=== PATIENT | female | born 1935 | race Caucasian/White ===

== ENCOUNTER 2017-09-29 11:33 | Observation (INO) ==
--- NOTE | 2017-09-29 11:46 | Emergency Department Note ---
Disposition Clinical Impression: Altered awareness, transient, History of CVA (cerebrovascular accident) Disposition: Admitted As Inpatient Condition: Fair Forms: ED Satisfaction Letter General Adult HPI - General Chief complaint: ED Altered Mental Status Stated complaint: AMS Time Seen by Provider: 09/29/17 11:37 Source: family, EMS Limitations: altered mental status Nursing Notes Reviewed: Yes Vital Signs Reviewed: Yes - History of Present Illness HPI Narrative: 82-year-old female who was sitting and eating at approximately 10 AM this morning. was eating with her and reports that she suddenly went unresponsive. She was still sitting up with muscle tone but her eyes closed and she would not answer any questions. She did not choke. She has a history of a stroke approximately 9 months ago. Unclear if it was hemorrhagic or ischemic. Since EMS was called she has improved to the point where she will open her eyes but was still not follow commands or speak. Her baseline is mild confusion due to the prior stroke. Her past medical history includes prior thyroid cancer with thyroidectomy. She also has hypertension. According to her she does not take an aspirin or any blood thinners. She has no cardiac issues that he is aware of. Her is her primary caregiver Pain Scale: 0 Consistency: constant Improves with: nothing Worsens with: nothing Associated symptoms: Reports: denies other symptoms Treatments Prior to Arrival: none - Related Data Home Medications Medication Instructions Recorded Confirmed Aspirin [Lo-Dose Aspirin EC] 81 mg PO DAILY 09/29/17 09/29/17 Ergocalciferol (VITAMIN D2) 50,000 unit PO QWEEK 09/29/17 09/29/17 [Vitamin D2] Levothyroxine [Synthroid] 100 mcg PO DAILY 09/29/17 09/29/17 Losartan Potassium [Cozaar] 50 mg PO DAILY 09/29/17 09/29/17 Allergies Allergy/AdvReac Type Severity Reaction Status Date / Time No Known Allergies Allergy Verified 09/29/17 11:48 Limitations: ROS unobtainable due to patients medical condition Past Medical History - Past Medical History Medical history: Reports: CVA, hypertension, thyroid disease Psychiatric history: Reports: no psych history - Social History Smoking Status: Never smoker Smokeless Tobacco Status: No Alcohol use: Reports: none Drug use: Reports: none Physical Exam - General Limitations: altered mental status General appearance: alert - Head Head exam: atraumatic - Eye Eye exam: Present: normal appearance, PERRL, other (Will not follow commands to test extraocular movements) - ENT ENT exam: normal exam, normal oropharynx - Neck Neck exam: Present: normal inspection - Chest Chest inspection: Present: normal inspection - Respiratory Respiratory exam: Present: normal lung sounds bilaterally. Absent: respiratory distress - Cardiovascular Cardiovascular exam: Present: regular rate, normal rhythm - Abdominal Exam Abdominal exam: Present: soft, Non-Tender - Extremities Exam Extremities exam: Present: normal inspection - Neurological Exam Neurological exam: Present: alert, other (Is unable to answer questions. She does not follow any commands. She is alert but with increased muscular tone. She appears to be catatonic. If you move an arm up in the air she will hold it there until you put it back down.) - Skin Skin exam: Present: warm, dry Course Course Narrative: Stroke alert called. While here in the emergency department her symptoms also completely resolved. The stroke camera was used with [facility]. They did not recommend TPA. They recommended admission for TIA versus other causes. Lab work and EKG are unremarkable. She will be admitted. She is now able to answer questions appropriately but still does speak slowly. Vital Signs Temperature 98.2 F 09/29/17 11:36 Pulse Rate 77 09/29/17 11:36 Respiratory Rate 17 09/29/17 11:36 Blood Pressure 193/93 09/29/17 11:36 O2 Sat by Pulse Oximetry 96 09/29/17 11:36 Temperature 98.2 F 09/29/17 11:36 Pulse Rate 83 09/29/17 12:22 Respiratory Rate 23 09/29/17 12:22 Blood Pressure 183/93 09/29/17 12:22 O2 Sat by Pulse Oximetry 99 09/29/17 12:22 Oxygen Delivery Oxygen Delivery Room Air Medical Decision Making - Medical Records Medical records reviewed: Yes I reviewed the patient's medical records. - Lab Data Lab results reviewed: Yes I reviewed the patient's lab results. Result diagrams: 09/29/17 11:43 09/29/17 11:43 Lab Results 09/29/17 09/29/17 09/29/17 Range/Units 11:43 11:43 11:43 WBC 6.7 (4.3-11.1) K/mcL RBC 3.71 L (3.82-4.97) M/mcL Hgb 11.4 L (11.5-15.4) g/dL Hct 34.5 L (35.3-44.9) % MCV 93.0 (83.0-100.0) fL MCH 30.7 (28.0-33.3) pg MCHC 33.0 (31.6-35.5) g/dL RDW 13.1 (11.5-14.5) % Plt Count 230 (140-400) K/mcL MPV 9.7 (9.4-12.4) fL Immature Gran % 0.3 (0-4) % Seg Neutrophils % 76.2 % Lymphocytes % 16.2 % Monocytes % 6.4 % Eosinophils % 0.3 % Basophils % 0.6 % Neutrophils # 5.1 (1.6-8.9) K/mcL Lymphocytes # 1.1 (0.6-4.6) K/mcL Monocytes # 0.4 (0.0-1.3) K/mcL Eosinophils # 0.0 (0.0-0.6) K/mcL Basophils # 0.0 (0.0-0.2) K/mcL PT 10.8 (9.4-12.1) Seconds INR 1.0 APTT 32.1 (26.0-36.0) Seconds Sodium 139 (136-145) mEq/L Potassium 4.5 (3.5-4.5) mEq/L Chloride 105 (98-109) mEq/L Carbon Dioxide 24 (19-29) mEq/L BUN 26 H (7-20) mg/dL Creatinine 1.33 H (0.57-1.11) mg/dL Est GFR ( Amer) 46 L (> 60) Est GFR (Non-Af Amer) 38 L (> 60) BUN/Creatinine Ratio 20 (6-26) Glucose 106 H (70-99) mg/dL Calculated Osmolality 293 (280-300) Calcium 8.4 L (8.6-10.8) mg/dL Troponin I (0-0.03) ng/mL 09/29/17 Range/Units 11:43 WBC (4.3-11.1) K/mcL RBC (3.82-4.97) M/mcL Hgb (11.5-15.4) g/dL Hct (35.3-44.9) % MCV (83.0-100.0) fL MCH (28.0-33.3) pg MCHC (31.6-35.5) g/dL RDW (11.5-14.5) % Plt Count (140-400) K/mcL MPV (9.4-12.4) fL Immature Gran % (0-4) % Seg Neutrophils % % Lymphocytes % % Monocytes % % Eosinophils % % Basophils % % Neutrophils # (1.6-8.9) K/mcL Lymphocytes # (0.6-4.6) K/mcL Monocytes # (0.0-1.3) K/mcL Eosinophils # (0.0-0.6) K/mcL Basophils # (0.0-0.2) K/mcL PT (9.4-12.1) Seconds INR APTT (26.0-36.0) Seconds Sodium (136-145) mEq/L Potassium (3.5-4.5) mEq/L Chloride (98-109) mEq/L Carbon Dioxide (19-29) mEq/L BUN (7-20) mg/dL Creatinine (0.57-1.11) mg/dL Est GFR ( Amer) (> 60) Est GFR (Non-Af Amer) (> 60) BUN/Creatinine Ratio (6-26) Glucose (70-99) mg/dL Calculated Osmolality (280-300) Calcium (8.6-10.8) mg/dL Troponin I 0.01 (0-0.03) ng/mL - Radiology Data Radiology results reviewed: Yes I reviewed the patient's radiology results. - EKG Data EKG #1 EKG attestation: Yes I reviewed and interpreted this EKG. EKG shows normal: sinus rhythm Rate: normal Rhythm: NSR Superior/QRS: normal When compared to previous EKG there are: no significant changes Interpretation: no acute changes NIH Stroke Scale - Level of Consciousness LOC: Alert - LOC Questions LOC Questions: Answers both correctly - LOC Commands LOC Commands: Performs both correctly - Best Gaze Best Gaze: Normal - Visual Visual: No visual loss - Facial Palsy Facial Palsy: Normal - Motor Arms Motor Arm-Left: No drift for 10 seconds Motor Arm-Right: No drift for 10 seconds - Motor Legs Motor Leg-Left: No drift for 5 seconds Motor Leg-Right: No drift for 5 seconds - Limb Ataxia Limb Ataxia: Normal, No Ataxia - Sensory Sensory: Normal - Best Language Best Language: Mute, no usable speech - Dysarthria Dysarthria: Severe, slurred speech unintelligible or mute - Extinction and Inattention Extinction and Inattention: Normal - NIHSS Total Score NIHSS Total Score: 5 TPA Checklist - Source Information Source: Family - Eligibilty for IV tPA 1. LKW equal to or less than 4.5 hours be before treatment: Yes 2. Clinical diagnosis of ischemic stroke causing deficit: Yes 3. Age 18 years or older: Yes - Contraindications 4. Evidence of intracranial hemorrhage on pretreatment CT: No 5. Presentation suggests subarachnoid hem, even if CT normal: No 6. CT shows multilobar infarction: No 7. Known neoplasm, arteriovenous malformation, or aneurysm: No 8. Significant head trauma (w/ LOC) or CVA in last 3 months: No 9. BP elevated (systolic > 185 or diastolic > 110): Yes 10. Abnormal Blood Glucose (<50 or >400mg/dl): No 11. Active internal bleeding [PM.TPA15]: No 12. Known bleeding risk (including; not limited to 13-15): No 13. Heparin/argatroban/bivalirudin w/in 48hrs & PTT > normal: No 14. Platelet count less than 100,000/MM3: No 15. Current or recent use of anticoagualants (see protocol): No - Warnings/Precautions Considerations 18. : No 19. Current/recent use Effient (7 days) or Brilinta (5 days): No 20. Arterial puncture at non compressible site or LP >7days: No 21. Major surgery or serious trauma in last 14 days: No 22. GI or urinary tract hemorrhage in last 21 days: No 23. MN involving left anterior myocardium in last 3 months: No 24. Suspected or known infective endocarditis/pericarditis: No - LKW: 3-4.5 hrs Add. Warnings/Precautions 21. oral anticoag other than warfarin regardles of last dose: No Patient/family understanding: The patient/family members have been counseled and understood the risk, benefit , and alternatives of treatment.
[2017-09-29 11:54] LABS: Basophils % 0.6 %; Eosinophils % 0.3 %; Hematocrit 34.5 % (35.3-44.9); Hemoglobin 11.4 g/dL (11.5-15.4); Immature Granulocytes % 0.3 % (0-4); Lymphocytes # 1.1 K/mcL (0.6-4.6); Lymphocytes % 16.2 %; Mean Corpuscular Hemoglobin 30.7 pg (28.0-33.3); Mean Platelet Volume 9.7 fL (9.4-12.4); Monocytes # 0.4 K/mcL (0.0-1.3); Monocytes % 6.4 %; Neutrophils # 5.1 K/mcL (1.6-8.9); Platelet Count 230 K/mcL (140-400); Red Blood Count 3.71 M/mcL (3.82-4.97); Red Cell Distribution Width 13.1 % (11.5-14.5); Segmented Neutrophils % 76.2 %
--- NOTE | 2017-09-29 11:56 | Emergency Department Note ---
START Narrative - START START: I examined this patient and my medical decision-making was reviewed with the emergency medicine resident. I agree with the documented findings, disposition and treatment plan as described except to the extent set forth below. Patient seen with emergency medicine resident Dr. Carlos Salguero, Please see a copy of his note for details of the H&P, ED evaluation, management and disposition. I have independently evaluated the patient and confirmed appropriate portions of the history and physical exam. Briefly: A 2-year-old female history of stroke 6-8 months ago by EMS for acute CVA. Patient arrives catatonic, NIH about 7 patient stroke alert was called stroke robot is in room stroke alert in process. Provided 35 minutes critical care services to this patient disposition pending
[2017-09-29 12:00] LABS: Prothrombin Time 10.8 Seconds (9.4-12.1)
[2017-09-29 12:02] LABS: Activated Partial Thrombo Time 32.1 Seconds (26.0-36.0)
[2017-09-29 12:07] LABS: Calcium 8.4 mg/dL (8.6-10.8); Potassium 4.5 mEq/L (3.5-4.5)
[2017-09-29] MEDS ORDERED: Naloxone 0.4 MG/ML INJ IVP PRN (14:30)
--- NOTE | 2017-09-29 14:43 | Internal Med History&Physical ---
Date of Encounter: 09/29/17 Time of Encounter: 14:39 Assessment and Plan (1) TIA (transient ischemic attack) Current visit: Yes Status: Suspected Transient alterations in mental status and this morning. The differential includes TIA, SEIZURE AND HTN ENCEPHALOPATHY. Patient is now back to baseline with no focal neuro deficits noted. History of CVA approximately 9 months ago. Not taking any blood thinners, 81 mg aspirin daily for antiplatelet therapy. Was initially found with hypertensive urgency on arrival to the ED. Consult neurology- Spoke with Dr. Grigsby who has agreed to see the patient EEG to rule out seizure- implement seizure precautions. Stroke workup will include MRI head and brain with contrast, MRA head and neck without contrast PT/OT consult Continuous telemetry, neuro checks per protocol, NIHSS per protocol Qualifiers: Transient cerebral ischemia type: unspecified Qualified Code(s): G45.9 - Transient cerebral ischemic attack, unspecified (2) Seizure Current visit: Yes Status: Acute Patient rapidly improved no focal neuro deficits. Current presentation appears likely had a seizure. However cannot fully rule out TIA or hypertensive encephalopathy. See plan above (3) Altered awareness, transient Current visit: Yes Status: Acute Condition improving. See plan above (4) HTN (hypertension) Current visit: Yes Status: Acute Hypertensive urgency upon arrival systolic blood pressures in the 190s. 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 Reports having thyroid cancer at 23 years of age, follows as an outpatient with her primary care provider in [facility]. Continue Synthroid home dose starting tomorrow Qualifiers: Hypothyroidism type: acquired Qualified Code(s): E03.9 - Hypothyroidism, unspecified (6) DVT prophylaxis Current visit: Yes Status: Acute Heparin 5000 units subcutaneous every 12 hours Internal Medicine - H&P: HPI Chief complaint: TIA versus seizure Admitted From: Home Plans for Post Hospital Care: Home History of present illness: Ms. Arrieta is a 82 year old female with a PMH of CVA 9 months ago with some baseline confusion since treatment, HTN, and hypothyroidism secondary to thyroid cancer. Patient arrives to [facility] with due to acute mental status change. Time of this examination the patient was alert and oriented 3 and able to participate in the examination, however, is still having some difficulty remembering some of the events this morning. She reports that she was eating breakfast this morning and all of a sudden she feels like she passed out. Her reports that her eyes were open and she became unresponsive. She was unable to verbally communicate or follow any commands so he called EMS. The time she arrived to the emergency department symptoms are slowly resolving. I will see stroke center was consulted and recommended admitting for TIA versus seizures. Troponin negative CT of head negative EKG normal sinus rhythm. Patient denies any vision changes, headaches, slurred speech, facial droop, numbness or tingling. However, her admits that she fell yesterday and but not hit her head and that she has been having an increased shuffling gait over the last few days. Past Med Surg Social Fam HX - Past Medical History Medical history: CVA, hypertension, thyroid disease Psychiatric history: no psych history - Social History Smoking Status: Never smoker Smokeless Tobacco Status: No Alcohol use: none Drug use: none - Family History Mother Race: - Additional Family History Additional family history: Noncontributory Internal Medicine - H&P: Meds Aspirin [Lo-Dose Aspirin EC] 81 mg PO DAILY 09/29/17 [History] Ergocalciferol (VITAMIN D2) [Vitamin D2] 50,000 unit PO QWEEK 09/29/17 [History] Levothyroxine [Synthroid] 100 mcg PO DAILY 09/29/17 [History] Losartan Potassium [Cozaar] 50 mg PO DAILY 09/29/17 [History] 3 Allergy/AdvReac Type Severity Reaction Status Date / Time No Known Allergies Allergy Verified 09/29/17 11:48 All Systems PM: A 10-system review of systems was performed and is negative for pertinent findings except as documented above in the HPI. - Constitutional Constitutional: as per HPI, falls, no chills, no fatigue, no fever(s), no lethargy, no night sweats - EENT Eyes: no blurry vision, no change in vision, no discharge, no loss of peripheral vision, no loss of vision, no pain, no photophobia, no spots in vision, no tunnel vision Ears: no ear discharge, no ear pain, no tinnitus Nose, mouth and throat: no dysphagia, no nasal discharge, no neck pain, no sore throat - Cardiovascular Cardiovascular ROS IM: no chest pain, no diaphoresis, no dyspnea, no lightheadedness, no palpitations, no syncope - Respiratory Respiratory: no cough, no dyspnea, no wheezing, no excessive phlegm production - Gastrointestinal Gastrointestinal: no abdominal pain, no diarrhea, no hematemesis, no hematochezia, no melena, no nausea, no vomiting - Genitourinary Genitourinary: no change in urinary stream, no dysuria, no flank pain, no hematuria - Musculoskeletal Musculoskeletal ROS IM: no numbness, no tingling - Integumentary Integumentary IM: no rash, no unusual bruising - Neurological Neurological ROS: as per HPI, abnormal gait, no abnormal movements, no abnormal speech, no confusion, no convulsions, no disequilibrium, no dizziness, no focal weakness, no frequent falls, no headache(s), no lack of coordination, no loss of vision, no numbness, no tingling, no tremor(s) - Psychiatric Psychiatric: difficulty concentrating, no behavioral changes, no confusion - Hematologic/Lymphatic Hematologic/Lymphatic: no easy bruising - Constitutional Vitals: Temp Pulse Resp BP Pulse Ox 98.2 F 73 18 167/76 98 09/29/17 11:36 09/29/17 14:05 09/29/17 14:05 09/29/17 14:05 09/29/17 13:05 General appearance: Present: cooperative, A&O X 3, pleasant - Head Head exam: Present: atraumatic, normocephalic - Eye Eye exam: Present: EOMI, PERRL, conjuntiva pink, sclera anicteric Pupils: Present: PERRL - Neck Neck exam general surgery: Present: full ROM, supple, trachea midline. Absent: tenderness - Respiratory Respiratory exam: Present: CTAB. Absent: accessory muscle use, rales, rhonchi, wheezes - Cardiovascular Cardiovascular exam: Present: RRR, +S1, +S2. Absent: diastolic murmur, gallop, rubs, systolic murmur - GI/Abdominal GI/Abdominal exam: Present: normal bowel sounds, soft, no peritoneal signs. Absent: distended, tenderness - Extremities Exam Extremities exam: Present: warm, radial pulses palpable and symmetrical. Absent : calf tenderness, cyanotic, pedal edema - Neurological Exam Neurological exam: Present: alert, CN II-XII intact, oriented X3, no focal deficits, strengths equal and symetr throughout. Absent: pronater drift, facial droop, speech deficit - Expanded Neurological Exam Neurological exam expanded: Present: protecting the airway, tremor (Chronic right upper extremity). Absent: expressive aphasia, receptive aphasia Patient oriented to: Present: person, place (With cues), time Speech: Present: fluid speech Cranial Nerves: EOM's intact PM: Normal, gag reflex PM: Normal, nystagmus PM: Normal, tongue deviation PM: Normal Cerebellar function: finger to nose: Abnormal Left (Right normal), heel to cook : Abnormal Left (Right normal), Romberg: Normal Upper motor neuron: Babinski sign: Normal, Manuel neglect: Normal, pronator drift : Normal, sensory extinction: Normal Neuro motor strength exam: LUE: 4, RUE: 4, LLE: 4, RLE: 4 Coma Scale Eye Opening: Spontaneous Coma Scale Motor Response: Obeys Commands Coma Scale Verbal Response: Oriented (With intermittent confusion; this is patient's baseline) Coma Scale Total: 15 - Psychiatric Psychiatric exam: Present: normal affect, normal mood. Absent: homicidal ideation, suicidal ideation - Skin Skin exam: Present: dry, intact Internal Med - H&P Results - Labs CBC & Chem 7: 09/29/17 11:43 09/29/17 11:43 - Diagnostic Studies CT scan - head Status: image reviewed by me Additional comments: No hemorrhage, mass effect or midline shift or ischemia identified
--- NOTE | 2017-09-29 14:56 | Event Note ---
Date of Encounter: 09/29/17 Time of Encounter: 14:56 Patient and examined with nurse practitioner. Seizure versus TIA. Will do stroke workup, EEG. Check MRI, MRA of the head and neck. Neurology consultation
[2017-09-29] MEDS: Aspirin Enteric Coated 81 MG Tablet PO SCH (16:36)
[2017-09-29] MEDS: *HR* Heparin 5,000 UNIT/ML VIAL SQ SCH (20:34)
[2017-09-30 04:00] LABS: Basophils % 0.4 %; Eosinophils % 0.4 %; Hematocrit 34.2 % (35.3-44.9); Hemoglobin 11.3 g/dL (11.5-15.4); Immature Granulocytes % 0.3 % (0-4); Lymphocytes # 1.6 K/mcL (0.6-4.6); Lymphocytes % 22.2 %; Mean Corpuscular Hemoglobin 30.6 pg (28.0-33.3); Mean Corpuscular Volume 92.7 fL (83.0-100.0); Mean Platelet Volume 9.9 fL (9.4-12.4); Monocytes # 0.5 K/mcL (0.0-1.3); Monocytes % 6.9 %; Neutrophils # 4.9 K/mcL (1.6-8.9); Platelet Count 222 K/mcL (140-400); Red Blood Count 3.69 M/mcL (3.82-4.97); Red Cell Distribution Width 13.3 % (11.5-14.5); Segmented Neutrophils % 69.8 %
[2017-09-30 04:18] LABS: Albumin 3.4 g/dL (3.5-5.0); Albumin/Globulin Ratio 1.1 (1.1-2.2); Bilirubin,Total 0.7 mg/dL (0.2-1.2); Calcium 7.9 mg/dL (8.6-10.8); Chol/HDL Ratio 2.8 (0-4.9); Globulin 3.2 g/dL (2.4-3.5); Potassium 3.6 mEq/L (3.5-4.5); Total Protein 6.6 g/dL (6.0-8.3)
[2017-09-30] MEDS: *HR* Heparin 5,000 UNIT/ML VIAL SQ SCH ×3 (05:07→20:56)
[2017-09-30] MEDS: Aspirin Enteric Coated 81 MG Tablet PO SCH (08:57)
--- NOTE | 2017-09-30 08:58 | Internal Med Progress Note ---
Date of Encounter: 09/30/17 Time of Encounter: 08:55 - Assessment and plan (1) History of CVA (cerebrovascular accident) Current Visit: Yes Status: Acute Assessment and plan: Eve Arrieta is an 82 -year-old female with past medical history dementia, CVA, hypothyroidism, and hypertension who presented to [facility] on 09/29/2017 after an unresponsive episode at home. She was placed in observation status for further workup and treatment 1. Transient alteration in mentation: presented with an unresponsive episode day of admission. Etiology unknown at this time. Differentials include TIA, seizure, seizure or worsening dementia. Head CT with evidence of known infarct, Brain MRI/A without acute infarct or large vessel occlusion or aneurysm. Mentation improved but not back to baseline per family. EEG, UA, TSH pending. Neurology consulted. 2. Hx CVA: in 2015 with no residual deficits. Imaging as noted above. Cont ASA, statin. 3. Hypertensive Urgency: With SBP 80s and 190s on arrival. reports BP fluctuation at home. P improved, continue home BP medication. Monitor BP and titrate PRN 4. CARLEY: Cr 1.3 on arrival. Baseline appears normal. Normalized without intervention. Intimately monitor renal function 5. Hypothyroidism: with hx thyroidectomy. Cont home levothyroxine. TSH pending 6. Dementia: per hx. alert to self only on exam which is worse than baseline per her and daughter. Workup as noted above. Supportive care. 7. DVT prophylaxis: heparin (2) Hypertensive urgency Current Visit: Yes Status: Acute (3) CARLEY (acute kidney injury) Current Visit: Yes Status: Acute (4) Hypothyroidism Current Visit: Yes Status: Acute Qualifiers: Hypothyroidism type: acquired Qualified Code(s): E03.9 - Hypothyroidism, unspecified (5) Dementia Current Visit: Yes Status: Acute Qualifiers: Dementia type: vascular dementia Dementia behavioral disturbance: without behavioral disturbance Qualified Code(s): F01.50 - Vascular dementia without behavioral disturbance - Subjective Interval history: Seen and examined at bedside, patient is new to me. Information obtained from chart review and and daughter at bedside as patient is confused and unable to provide details. reports patient was sitting up at breakfast yesterday morning appeared to be an usual state of health when all of a sudden she became stiff and unresponsive. said it appears that she was . Episode lasted a few minutes. And the patient started to come around again. No previous similar incidents. and daughter both state the patient is more confused than what she normally is. Patient is alert to self only. - Constitutional Vitals: Temp Pulse Resp BP Pulse Ox 98.7 F 72 16 149/75 96 09/30/17 06:53 09/30/17 06:53 09/30/17 06:53 09/30/17 06:53 09/30/17 06:53 General appearance: Present: cooperative, A&O X 1, pleasant, no acute distress - Head Head exam: Present: atraumatic, normocephalic - Eye Eye exam: Present: PERRL, conjuntiva pink, sclera anicteric Pupils: Present: PERRL - Neck Neck exam general surgery: Present: supple, trachea midline. Absent: lymphadenopathy - Respiratory Respiratory exam: Present: CTAB. Absent: accessory muscle use, rales, rhonchi, wheezes - Cardiovascular Cardiovascular exam: Present: RRR, +S1, +S2. Absent: diastolic murmur, gallop, rubs, systolic murmur - GI/Abdominal GI/Abdominal exam: Present: normal bowel sounds, soft, no peritoneal signs. Absent: distended, tenderness - Extremities Exam Extremities exam: Present: warm, radial pulses palpable and symmetrical. Absent : calf tenderness, cyanotic, pedal edema - Neurological Exam Neurological exam: Present: alert, altered, CN II-XII intact, no focal deficits. Absent: pronater drift, facial droop, speech deficit Additional comments: Alert and oriented to self only. - Skin Skin exam: Present: dry, intact Internal Medicine: Result - Labs CBC & Chem 7: 09/30/17 03:16 09/30/17 03:16 Labs: Short CBC 09/30/17 Range/Units 03:16 WBC 7.1 (4.3-11.1) K/mcL Hgb 11.3 L (11.5-15.4) g/dL Hct 34.2 L (35.3-44.9) % Plt Count 222 (140-400) K/mcL Neutrophils # 4.9 (1.6-8.9) K/mcL BMP 09/30/17 03:16 Sodium 140 Potassium 3.6 Chloride 104 Carbon Dioxide 24 BUN 23 H Creatinine 1.08 Glucose 77 Calcium 7.9 L Cardiac Enzymes 09/29/17 Range/Units 18:06 Troponin I 0.00 (0-0.03) ng/mL Liver Function 09/30/17 Range/Units 03:16 Total Bilirubin 0.7 (0.2-1.2) mg/dL AST 20 (5-34) Units/L ALT 12 (0-55) Units/L Alkaline Phosphatase 50 (38-126) Units/L Albumin 3.4 L (3.5-5.0) g/dL - ABG Interpretation ABG results: PT/INR, D-dimer PT 10.8 Seconds (9.4-12.1) 09/29/17 11:43 - Impressions Impressions Brain MRI 09/29/17 14:35 IMPRESSION: Moderate chronic small vessel ischemic disease within the periventricular white matter with associated cerebral atrophy. Chronic ischemic changes within the thalami. No evidence of acute ischemia. D/ / 09/29/2017 19:54:56 Eleazar Covington MD / alexis Interpreting Provider: Eleazar Covington MD Head MRA 09/29/17 14:35 IMPRESSION: No evidence of large vessel occlusion or aneurysm. 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 D/ / 09/29/2017 19:56:21 Eleazar Covington MD / rich Interpreting Provider: Eleazar Covington MD Neck MRA 09/29/17 14:35 IMPRESSION: Unremarkable exam D/ / Eleazar Covington MD / Eleazar Covington MD Interpreting Provider: Eleazar Covington MD Consult Discharge Plan - Plan Referrals: Adarsh Dior MD [Primary Care Provider] -
[2017-09-30 10:10] LABS: Thyroid Stimulating Hormone 2.412 mcIU/mL (0.350-4.840)
--- NOTE | 2017-09-30 10:39 | Neurology - Consult Note ---
Date of Encounter: 09/30/17 Time of Encounter: 08:15 Assessment and Plan (1) Altered awareness, transient Current Visit: Yes Status: Acute pt Noted to have this episode of these attention and unresponsiveness that has seemed to resolve spontaneously. No evidence of any acute stroke on exam at the same time it less likely was a TIA especially when it is involved consciousness without any other focal motor signs she already had MRI of the brain that was reported as negative for any acute infarct. MRA of the neck was also negative for any critical stenosis in anterior and posterior circulation. Other possibility that it could be nonconvulsive seizure for that he could do an EEG but at this time I would not recommend starting her on any antiepileptic medication. Should check for any underlying infectious or metabolic abnormality that may have been contributing to this patient's symptoms on the other hand may benefit from acute rehabilitation for generalized weakness and deconditioning (2) History of CVA (cerebrovascular accident) Current Visit: Yes Status: Acute History of stroke without any focal motor deficit on exam neither any abnormality on her new MRI to be suggestive of stroke. Continue on intact platelet agent along with the statin (3) Memory loss or impairment Current Visit: Yes Status: Acute History of Present Illness HPI: Ms. Arrieta is a 82 year old female with PMH of CVA, 9 months ago with some baseline confusion and no significant residual weakness, also has HTN, and hypothyroidism secondary to thyroid cancer. admitted with mental status change. according to who provided most of the history that that she was eating breakfast this morning and all of a sudden she feels like she passed out. Her reports that her eyes were open and she became unresponsive. She was unable to verbally communicate or follow any commands so he called EMS by the time she arrived to the emergency department she started waking up and start answering questions, [facility] tele stroke services were called in suggest work up for TIA versus seizures. CT of head negative, EKG normal sinus rhythm. Patient denies any vision changes, headaches, slurred speech, facial droop, numbness or tingling. per she is having an increased shuffling gait over the last few days. Past Med Surg Social Fam HX - Past Medical History Medical history: CVA, hypertension, thyroid disease Psychiatric history: no psych history - Past Surgical History Surgical History: thyroidectomy - Social History Smoking Status: Never smoker Smokeless Tobacco Status: No Alcohol use: none Drug use: none - Family History Mother Race: Medications and Allergies Aspirin [Lo-Dose Aspirin EC] 81 mg PO DAILY 09/29/17 [History] Ergocalciferol (VITAMIN D2) [Vitamin D2] 50,000 unit PO QWEEK 09/29/17 [History] Levothyroxine [Synthroid] 100 mcg PO DAILY 09/29/17 [History] Losartan Potassium [Cozaar] 50 mg PO DAILY 09/29/17 [History] 3 Allergy/AdvReac Type Severity Reaction Status Date / Time No Known Allergies Allergy Verified 09/29/17 11:48 All Systems: A 10-system review of systems was performed and is negative for pertinent findings except as documented above in the HPI. Physical Examination - Vital Signs Vital Signs: Initial Vital Signs Temp Pulse Resp BP Pulse Ox 98.2 F 77 17 193/93 96 09/29/17 11:36 09/29/17 11:36 09/29/17 11:36 09/29/17 11:36 09/29/17 11:36 - Constitutional General appearance: comfortable - Neurologic Sensorimotor examination: intact Detailed motor examination: grossly full strength in all extremities Detailed sensory examination: intact Reflexes: Biceps: 1+, Triceps: 1+, Brachioradialis: 1+, Patella: 1+, Achilles: 1 + Mental Status Examination: awake, alert, oriented to person, follows simple commands, localizes noxious stimulation Cranial nerve examination: PERRL, EOMI, visual montgomery intact, sensory to face intact, no facial asymmetry is present, no dysarthria Cerebellar examination: no dysmetria Results - Laboratory Findings CBC and BMP: 09/30/17 03:16 09/30/17 03:16 Abnormal lab findings: Abnormal lab results RBC 3.69 M/mcL (3.82-4.97) L 09/30/17 03:16 Hgb 11.3 g/dL (11.5-15.4) L 09/30/17 03:16 Hct 34.2 % (35.3-44.9) L 09/30/17 03:16 BUN 23 mg/dL (7-20) H 09/30/17 03:16 Est GFR ( Amer) 59 (> 60) L 09/30/17 03:16 Est GFR (Non-Af Amer) 49 (> 60) L 09/30/17 03:16 Calcium 7.9 mg/dL (8.6-10.8) L 09/30/17 03:16 Albumin 3.4 g/dL (3.5-5.0) L 09/30/17 03:16 Cholesterol 243 mg/dL (< 200) H 09/30/17 03:16 LDL Cholesterol, Calc 142 mg/dL (0-99) H 09/30/17 03:16 HDL Cholesterol 87 mg/dL (40-59) H 09/30/17 03:16 Consult Discharge Plan - Plan Referrals: Adarsh Dior MD [Primary Care Provider] -
[2017-09-30 14:39] LABS: Bilirubin,Urine Small (Negative); Blood,Urine Negative (Negative); Clarity,Urine Cloudy (Clear); Color,Urine Yellow (Yellow); Glucose,Urine (UA) Normal (Normal); Ketones,Urine 15 mg/dL (Negative); Leukocyte Esterase,Urine Large (Negative); Nitrite,Urine Negative (Negative); Protein,Urine 30 mg/dL (Neg-Trace); Urobilinogen,Urine Normal (Normal)
[2017-09-30 14:42] LABS: Squamous Epithelial Cell,Urine Few per lpf (None-Few); WBC,Urine TNTC per hpf (0-3)
--- NOTE | 2017-09-30 14:53 | EEG/EMG/Oth Biometrics Report ---
EEG Procedure Report Date of procedure: 09/30/17 EEG Procedure: Routine EEG Procedure Note: This is a report of a 21 channel bipolar and referential montage EEG. The posterior dominant rhythm of 6-7 Hz moderate to low voltage theta frequencies identified symmetrically and the posterior head regions. This rhythm is not reactive to eye opening. Hyperventilation is not performed in the recording. There is no sleep architecture identified during the study. Photic stimulation is performed and does not produce a driving response. The EKG rhythm strip reveals normal sinus rhythm at 72. Impressions: This EEG recording is abnormal and is consistent with a mild to moderately generalized encephalopathy. There is no evidence of epileptiform activity identified during the study. Comment: This EEG recording does not rule out the possibility of seizure or epilepsy. If the clinical suspicion for seizure activity is high, serial EEGs or perhaps a prolonged recording may increase the yield. Please correlate clinically.
[2017-09-30 14:56] LABS: Bacteria,Urine Few per hpf (None-Few); RBC,Urine 0-3 per hpf (0-3)
[2017-09-30 14:57] LABS: Hyaline Casts,Urine Few per lpf (None-Few)
[2017-09-30 16:14] LABS: Folate 10.9 ng/mL (7.0-31.4)
[2017-10-01 02:52] LABS: Hematocrit 31.6 % (35.3-44.9); Hemoglobin 10.5 g/dL (11.5-15.4); Mean Corpuscular HGB Conc 33.2 g/dL (31.6-35.5); Mean Corpuscular Hemoglobin 30.7 pg (28.0-33.3); Mean Corpuscular Volume 92.4 fL (83.0-100.0); Mean Platelet Volume 9.9 fL (9.4-12.4); Platelet Count 219 K/mcL (140-400); Red Blood Count 3.42 M/mcL (3.82-4.97); Red Cell Distribution Width 13.2 % (11.5-14.5)
[2017-10-01 03:13] LABS: Calcium 7.9 mg/dL (8.6-10.8); Potassium 3.4 mEq/L (3.5-4.5)
[2017-10-01] MEDS: *HR* Heparin 5,000 UNIT/ML VIAL SQ SCH (05:31)
--- NOTE | 2017-10-01 08:22 | Discharge Summary ---
Date of Encounter: 10/01/17 Time of Encounter: 08:17 - Discharge Diagnosis (1) History of CVA (cerebrovascular accident) Priority: Primary Status: Acute Comments: vEe Arrieta is an 82 -year-old female with past medical history dementia, CVA, hypothyroidism, and hypertension who presented to [facility] on 09/29/2017 after an unresponsive episode at home. She was placed in observation status for further workup and treatment 1. Transient alteration in mentation: presented with an unresponsive episode day of admission. Head CT with evidence of known lacunar infarct. Brain MRI/A negative for acute infarct, large vessel occlusion or aneurysm. EEG with generalized encephalopathy, no epileptiform activity. Evaluated by Neurology who did not suspect TIA as episode involved consciousness without focal motor signs. Possibly secondary to known dementia or UTI. Mentation improved back to baseline per family. 2. Hx CVA: in 2015 with no residual deficits. Imaging as noted above. Cont ASA, statin. 3. Hypertensive Urgency: With SBP in 180s-190s on arrival. Received IV hydralazine in ED. BP remained variable but overall improved. Cont home BP medication. monitors BP on daily basis. Advised to continue to monitor BP and recommend follow-up with PCP within 3-5 days. 4. CARLEY: Cr 1.3 on arrival. Baseline appears normal. Normalized without intervention. Recommend repeat CMP with PCP. 5. Hypothyroidism: hx thyroidectomy. Cont home levothyroxine. TSH 2.4 6. Dementia: per hx. Mentation improved back to baseline. 7. UTI: UA indicative of UTI. Received 1 dose IV Rocephin. ATB changed to Macrobid at discharge. Follow sensitivity and change ATB if needed. (2) Hypertensive urgency Priority: Primary Status: Acute (3) CARLEY (acute kidney injury) Priority: Primary Status: Acute (4) Hypothyroidism Priority: Primary Status: Acute Qualifiers: Hypothyroidism type: acquired Qualified Code(s): E03.9 - Hypothyroidism, unspecified (5) Dementia Priority: Primary Status: Acute Qualifiers: Dementia type: vascular dementia Dementia behavioral disturbance: without behavioral disturbance Qualified Code(s): F01.50 - Vascular dementia without behavioral disturbance - Discharge Medications Prescriptions: Nitrofurantoin Monohyd/M-Cryst [Macrobid 100 mg Capsule] 100 mg PO BID #14 capsule Home Medications: Aspirin [Lo-Dose Aspirin EC] 81 mg PO DAILY 09/29/17 [History] Ergocalciferol (VITAMIN D2) [Vitamin D2] 50,000 unit PO QWEEK 09/29/17 [History] Levothyroxine [Synthroid] 100 mcg PO DAILY 09/29/17 [History] Losartan Potassium [Cozaar] 50 mg PO DAILY 09/29/17 [History] Nitrofurantoin Monohyd/M-Cryst [Macrobid 100 mg Capsule] 100 mg PO BID #14 capsule 10/01/17 [Rx] Allergies/Adverse Reactions: 3 Allergy/AdvReac Type Severity Reaction Status Date / Time No Known Allergies Allergy Verified 09/29/17 11:48 Procedures/tests Complete & Pending: Procedures Performed prior 72 hours Category Date Time Status MR angio head wo con [MR] Routine MRI 09/29/17 14:35 Completed MR angio neck wo con [MR] Routine MRI 09/29/17 14:35 Completed MR head/brain wo con [MR] Routine MRI 09/29/17 14:35 Completed ECG 12 lead ECG [ECG] Routine Y 09/29/17 11:37 Completed Date of admission: 09/29/17 13:22 Primary care physician: Adarsh Dior MD Consults: 09/29/17 14:34 Consult to Occupational Therapy [CONS] Routine Comment: Evaluate, develop and implement POC Reason for Consult: TIA VS seizure; h/o recent CVA Consult to Physical Therapy [CONS] Routine Comment: Evaluate, develop and implement POC Reason for Consult: TIA VS seizure; h/o recent CVA 09/29/17 14:35 Consult to Neurology [CONS] Routine Consulting Provider: Neurology [facility] Reason for Consult: RECENT H/O CVA, TIA VS SEIZURE THIS ADMISSION Time Notified: 14:38 Call Completed: Yes 09/29/17 16:41 Consult to Interpret Exam [CONS] Routine Consulting Provider: Kosta Grigsby I Consult to Interpret Exam: Interpret EEG 09/30/17 07:55 Consult to Government Services Professional [CONS] Routine Reason for SW Consult: information for POA Discharging clinician: Hermila Valentine Anticipated date of discharge: 10/01/17 - Patient Status Disposition: Home Health Service Condition: Good Functional capacity at discharge: uses cane/walker Overall status at discharge: patient is back to baseline - Discharge Instructions Instructions: Urinary Tract Infection in Women (GEN), Transient Ischemic Attack (DC), Hypertension (DC) Follow Up With: Adarsh Dior MD [Primary Care Provider] - Additional Instructions: Follow Up Appointment Please call your primary care physician within 24 hours over the next business day to schedule follow-up appointment - Diet and Activity Activity: ambulate only with your walker Diet: advance to your usual diet Interval History: Seen and examined at bedside, patient is pleasantly confused, unable to obtain ROS or subjective information. Mentation improved and back to baseline per her Hospital course: Ms. Arrieta is a 82 year old female - Time Spent with Patient Total time spent providing and/or coordinating discharge services: - Constitutional Vitals: Temp Pulse Resp BP Pulse Ox 98.1 F 69 17 133/72 96 10/01/17 03:54 10/01/17 03:54 10/01/17 03:54 10/01/17 03:54 10/01/17 03:54 General appearance: Present: cooperative, A&O X 1, pleasant, no acute distress - Head Head exam: Present: atraumatic, normocephalic - Eye Eye exam: Present: PERRL, conjuntiva pink, sclera anicteric Pupils: Present: PERRL - Neck Neck exam general surgery: Present: supple, trachea midline. Absent: lymphadenopathy - Respiratory Respiratory exam: Present: CTAB. Absent: accessory muscle use, rales, rhonchi, wheezes - Cardiovascular Cardiovascular exam: Present: RRR, +S1, +S2. Absent: diastolic murmur, gallop, rubs, systolic murmur - GI/Abdominal GI/Abdominal exam: Present: normal bowel sounds, soft, no peritoneal signs. Absent: distended, tenderness - Extremities Exam Extremities exam: Present: warm, radial pulses palpable and symmetrical. Absent : calf tenderness, cyanotic, pedal edema - Neurological Exam Neurological exam: Present: alert, altered, CN II-XII intact, no focal deficits. Absent: pronater drift, facial droop, speech deficit Additional comments: Alert to self only - Skin Skin exam: Present: dry, intact
[2017-10-01] MEDS ORDERED: cefTRIAXone 1,000 MG in Water for inj. (sterile) 10 ML IVP SCH (09:00)
[2017-10-01] MEDS: Aspirin Enteric Coated 81 MG Tablet PO SCH (09:28)
--- NOTE | 2017-10-01 11:00 | Electrocardiograph Report ---
[place] [id number] Test Date: 2017-09-29 Pat Name: Eve Arrieta Department: 103 Room: 3B11 Gender: F Manager Industrial: LEE ANN : 1935 Requested By: Hermila Valentine Order Number: [id number] Reading MD: Sarahi Galan Measurements Intervals Burt Rate: 71 P: 9 MA: 151 QRS: -4 QRSD: 86 T: 54 QT: 400 QTc: 422 Interpretive Statements SINUS RHYTHM WITH OCCASIONAL SUPRAVENTRICULAR PREMATURE COMPLEXES Electronically Signed On 10-01-2017 10:58:31 EDT by Sarahi Galan
[2017-10-01 11:28] VITALS: BP 134/78
--- NOTE | 2017-10-01 12:18 | Physician Discharge Referral ---
Home Health/Hosp Referral Info Transfer to: Home Health Attending Provider: Hermila Valentine CNP Provider in Charge Post Discharge: PCP - Diagnosis (1) History of CVA (cerebrovascular accident) Status: Acute (2) Hypertensive urgency Status: Acute (3) CARLEY (acute kidney injury) Status: Acute (4) Hypothyroidism Status: Acute (5) Dementia Status: Acute - Respiratory Orders None Smoking Cessation: Smoking cessation has been advised. For more information, call the [place] Tobacco Quit Line at 8-828-DHQI-NOW. - Diet/Nutrition Diet/Nutrition Orders: Regular - Activity Activity Orders: Walker - Services Needed Following services are medically necessary services: Nursing, Home Health Aide, Physical Therapy, Occupational Therapy - Transfer Medications Prescriptions: Nitrofurantoin Monohyd/M-Cryst [Macrobid 100 mg Capsule] 100 mg PO BID #14 capsule Home Medications: Aspirin [Lo-Dose Aspirin EC] 81 mg PO DAILY 09/29/17 [History] Ergocalciferol (VITAMIN D2) [Vitamin D2] 50,000 unit PO QWEEK 09/29/17 [History] Levothyroxine [Synthroid] 100 mcg PO DAILY 09/29/17 [History] Losartan Potassium [Cozaar] 50 mg PO DAILY 09/29/17 [History] Nitrofurantoin Monohyd/M-Cryst [Macrobid 100 mg Capsule] 100 mg PO BID #14 capsule 10/01/17 [Rx] Allergies/Adverse Reactions: 3 Allergy/AdvReac Type Severity Reaction Status Date / Time No Known Allergies Allergy Verified 09/29/17 11:48 Certification: Further, I certify that my clinical findings support that this patient is homebound (i.e. absences from home require considerable and taxing effort and are for medical reasons or jain services or infrequently or short duration when for other reasons) because: Homebound Reason: Leaving home requires considerable and taxing effort due to condition Attestation: My signature below is to certify that this patient is under my care and that I, or nurse practitioner, or a physician's metal moulder's assistant working with me, has a face-to -face encounter with this patient.
== END 2017-10-01 13:59 | disposition home health service (06) ==
LOC: EMEROO 11:33 → 3BNU 11:33
PROVIDERS: ADMIT Hospitalist; ATTEND Registered Nurse

== ENCOUNTER 2017-12-11 19:36 | Inpatient (IN) ==
--- NOTE | 2017-12-11 20:01 | Emergency Department Note ---
START Narrative - START START: I examined this patient and my medical decision-making was reviewed with the Resident Physician. I agree with the documented findings, disposition and treatment plan as described except to the extent set forth below. Right sided weakness falling fall, will obtain CT scan to ro trauma. Will need to admit for RO stroke. She is out of the window for TPA and in the setting of fall this would be contraindicated. Final disposition pending results of advanced imaging and laboratory analysis.
--- NOTE | 2017-12-11 20:08 | Emergency Department Note ---
Disposition Clinical Impression: Weakness, Elevated CPK, Left-sided weakness Clavicle fracture Qualifiers: Encounter type: initial encounter Laterality: left Qualified Code(s): S42.002A - UTI (urinary tract infection) Qualifiers: Urinary tract infection type: acute cystitis Qualified Code(s): N30.00 - Disposition: Admitted As Inpatient Condition: Fair General Adult HPI - General Chief complaint: ED Neuro Symptoms/Deficit Stated complaint: stroke like symptoms Time Seen by Provider: 12/11/17 19:45 Source: EMS Limitations: altered mental status Nursing Notes Reviewed: Yes Vital Signs Reviewed: Yes - History of Present Illness HPI Narrative: Patient is here for evaluation of dizziness which she describes as near syncope as well as generalized weakness and fall. Family has arrived and states that she has had symptoms since yesterday. Last known well greater than 24 hours. Patient has had slumping to the right side with right-sided weakness compared to previous. The patient has tried to walk and has had her leg give out on her. Patient's fall yesterday was from a chair. Patient has had multiple falls over the last several months. Previous fall with head injury. The patient is awake and alert but oriented to person only. She is not able to give much history and how she feels. She does describe dizziness and feeling like she is going to pass out. She has mild facial droop on the right side. Right-sided weakness and concern for right wrist deformity. Ecchymosis to left shoulder. No other evidence of injury at this time. Pain Scale: 0 - Related Data Home Medications Medication Instructions Recorded Confirmed Aspirin [Lo-Dose Aspirin EC] 81 mg PO DAILY 09/29/17 12/12/17 Ergocalciferol (VITAMIN D2) 50,000 unit PO QWEEK 09/29/17 12/12/17 [Vitamin D2] Levothyroxine [Synthroid] 100 mcg PO DAILY 09/29/17 12/12/17 Losartan Potassium [Cozaar] 50 mg PO DAILY 09/29/17 12/12/17 Calcium Carbonate [Calcium] 1,800 mg PO DAILY 12/12/17 12/12/17 Previous Rx's Medication Instructions Recorded Nitrofurantoin Monohyd/M-Cryst 100 mg PO BID #14 capsule 10/01/17 [Macrobid 100 mg Capsule] Allergies Allergy/AdvReac Type Severity Reaction Status Date / Time No Known Allergies Allergy Verified 11/17/17 12:28 Review of Systems: CONSTITUTIONAL: Weakness and fatigue No weight loss, fever, chills, HEENT: Eyes: No visual changes. Ears, Nose, Throat: No hearing loss, difficulty talking or unable to swallow. SKIN: No rash or itching. CARDIOVASCULAR: No chest pain, chest pressure or chest discomfort. No palpitations or edema. RESPIRATORY: No shortness of breath, cough or sputum. GASTROINTESTINAL: No anorexia, nausea, vomiting or diarrhea. No abdominal pain or blood. GENITOURINARY: No burning on urination or hematuria. NEUROLOGICAL: Dizziness, near syncope, fall, weakness to the right side including face arm and leg. No headache, dizziness, syncope, paralysis, ataxia , numbness or tingling in the extremities. No change in bowel or bladder control. MUSCULOSKELETAL: Right wrist pain No muscle pain, back pain, or stiffness. Past Medical History - Past Medical History Medical history: Reports: CVA, hypertension, thyroid disease Surgical history: Reports: thyroidectomy Psychiatric history: Reports: no psych history CATERING COORDINATOR history: Reports: no CATERING COORDINATOR history - Social History Smoking Status: Never smoker Smokeless Tobacco Status: No Alcohol use: Reports: none Drug use: Reports: none Physical Exam General: Patient with limited ability to respond to commands. Head: Hematoma to frontal bone from previous fall Eyes: PERRL, EOMI ENT: Airway patent, no stridor Neck: supple, no meningismus Chest: Lungs clear to auscultation bilateral Cardiac: Regular rate and rhythm, no murmurs, rubs or gallops Abdomen: soft, nontender, nondistended; no guarding, rebound, or tenderness to percussion Musculoskeletal: Deformity to the right wrist Calves symmetric, nontender, no palpable cord Skin: Ecchymosis to the left shoulder. Abrasions and deformity to the right wrist No rash, normal skin tone Neuro: Alert and Oriented to person, place, and time; mild right-sided facial droop. Right-sided arm weakness and right leg weakness. No decreased sensation throughout. Finger to nose intact on the left but unable to perform on the right secondary to weakness and/or possible arm injury. - General Limitations: altered mental status General appearance: alert Course - Reevaluation(s) Reevaluation #1: Patient with significant urinary tract infection. Patient has clavicle fracture. Patient will be placed in a sling. Patient will be admitted for further management. - Consultations Consultation #1: Discussed with hospitalist, Dr. Cisneros. Patient accepted for admission. Vital Signs Temperature 98.5 F 12/11/17 19:39 Pulse Rate 83 12/11/17 19:39 Respiratory Rate 18 12/11/17 19:39 Blood Pressure 152/84 12/11/17 19:39 O2 Sat by Pulse Oximetry 98 12/11/17 19:39 Temperature 98.6 F 12/11/17 23:27 Pulse Rate 74 12/11/17 23:27 Respiratory Rate 16 12/11/17 23:27 Blood Pressure 156/84 12/11/17 23:27 O2 Sat by Pulse Oximetry 98 12/11/17 23:27 Oxygen Delivery Oxygen Delivery Room Air Medical Decision Making - Lab Data Result diagrams: 12/11/17 20:00 12/11/17 20:00 Lab Results 12/11/17 12/11/17 12/11/17 Range/Units 20:00 20:00 20:00 WBC 8.3 (4.3-11.1) K/mcL RBC 3.52 L (3.82-4.97) M/mcL Hgb 10.7 L (11.5-15.4) g/dL Hct 33.0 L (35.3-44.9) % MCV 93.8 (83.0-100.0) fL MCH 30.4 (28.0-33.3) pg MCHC 32.4 (31.6-35.5) g/dL RDW 13.2 (11.5-14.5) % Plt Count 231 (140-400) K/mcL MPV 9.7 (9.4-12.4) fL Immature Gran % 0.4 (0-4) % Seg Neutrophils % 77.3 % Lymphocytes % 11.9 % Monocytes % 8.1 % Eosinophils % 1.7 % Basophils % 0.6 % Neutrophils # 6.4 (1.6-8.9) K/mcL Lymphocytes # 1.0 (0.6-4.6) K/mcL Monocytes # 0.7 (0.0-1.3) K/mcL Eosinophils # 0.1 (0.0-0.6) K/mcL Basophils # 0.1 (0.0-0.2) K/mcL PT 10.8 (9.4-12.1) Seconds INR 1.0 APTT 29.4 (26.0-36.0) Seconds Sodium 139 (136-145) mEq/L Potassium 3.4 L (3.5-5.1) mEq/L Chloride 102 (98-107) mEq/L Carbon Dioxide 25 (23-29) mEq/L BUN 29 H (8-23) mg/dL Creatinine 1.03 (0.60-1.20) mg/dL Est GFR ( Amer) > 60 (> 60) Est GFR (Non-Af Amer) 51 L (> 60) BUN/Creatinine Ratio 28 H (6-26) Glucose 172 H (70-105) mg/dL Calculated Osmolality 298 (280-300) Calcium 7.3 L (8.6-10.3) mg/dL Creatine Kinase 1154 H (30-223) Units/L Troponin I (< 0.04) ng/mL B-Natriuretic Peptide (Less than 100) pg/mL TSH 2.642 (0.340-5.600) mcIU/mL Urine Color (Yellow) Urine Clarity (Clear) Urine pH (5.0-8.0) pH Units Ur Specific [place] (1.010-1.025) Urine Protein (Neg-Trace) mg/dL Urine Glucose (UA) (Normal) mg/dL Urine Ketones (Negative) mg/dL Urine Blood (Negative) Urine Nitrite (Negative) Urine Bilirubin (Negative) Urine Urobilinogen (Normal) mg/dL Ur Leukocyte Esterase (Negative) Urine Microscopic RBC (0-3) per hpf Urine Microscopic WBC (0-3) per hpf Ur Squamous Epith Cells (None-Few) per lpf Urine Bacteria (None-Few) per hpf Hyaline Casts (None-Few) per lpf Ur Culture Indicated? (NO) 12/11/17 12/11/17 12/11/17 Range/Units 20:00 20:00 20:18 WBC (4.3-11.1) K/mcL RBC (3.82-4.97) M/mcL Hgb (11.5-15.4) g/dL Hct (35.3-44.9) % MCV (83.0-100.0) fL MCH (28.0-33.3) pg MCHC (31.6-35.5) g/dL RDW (11.5-14.5) % Plt Count (140-400) K/mcL MPV (9.4-12.4) fL Immature Gran % (0-4) % Seg Neutrophils % % Lymphocytes % % Monocytes % % Eosinophils % % Basophils % % Neutrophils # (1.6-8.9) K/mcL Lymphocytes # (0.6-4.6) K/mcL Monocytes # (0.0-1.3) K/mcL Eosinophils # (0.0-0.6) K/mcL Basophils # (0.0-0.2) K/mcL PT (9.4-12.1) Seconds INR APTT (26.0-36.0) Seconds Sodium (136-145) mEq/L Potassium (3.5-5.1) mEq/L Chloride (98-107) mEq/L Carbon Dioxide (23-29) mEq/L BUN (8-23) mg/dL Creatinine (0.60-1.20) mg/dL Est GFR ( Amer) (> 60) Est GFR (Non-Af Amer) (> 60) BUN/Creatinine Ratio (6-26) Glucose (70-105) mg/dL Calculated Osmolality (280-300) Calcium (8.6-10.3) mg/dL Creatine Kinase (30-223) Units/L Troponin I < 0.03 (< 0.04) ng/mL B-Natriuretic Peptide 85 (Less than 100) pg/mL TSH (0.340-5.600) mcIU/mL Urine Color Yellow (Yellow) Urine Clarity Cloudy A (Clear) Urine pH 6.0 (5.0-8.0) pH Units Ur Specific [place] 1.021 (1.010-1.025) Urine Protein 30 H (Neg-Trace) mg/dL Urine Glucose (UA) 500 H (Normal) mg/dL Urine Ketones Negative (Negative) mg/dL Urine Blood Small H (Negative) Urine Nitrite Positive A (Negative) Urine Bilirubin Negative (Negative) Urine Urobilinogen Normal (Normal) mg/dL Ur Leukocyte Esterase Moderate H (Negative) Urine Microscopic RBC 0-3 (0-3) per hpf Urine Microscopic WBC 50-100 H (0-3) per hpf Ur Squamous Epith Cells Few (None-Few) per lpf Urine Bacteria Few (None-Few) per hpf Hyaline Casts Moderate H (None-Few) per lpf Ur Culture Indicated? YES A (NO)
[2017-12-11 20:14] LABS: Basophils # 0.1 K/mcL (0.0-0.2); Basophils % 0.6 %; Eosinophils # 0.1 K/mcL (0.0-0.6); Eosinophils % 1.7 %; Hemoglobin 10.7 g/dL (11.5-15.4); Immature Granulocytes % 0.4 % (0-4); Lymphocytes % 11.9 %; Mean Corpuscular HGB Conc 32.4 g/dL (31.6-35.5); Mean Corpuscular Hemoglobin 30.4 pg (28.0-33.3); Mean Corpuscular Volume 93.8 fL (83.0-100.0); Mean Platelet Volume 9.7 fL (9.4-12.4); Monocytes # 0.7 K/mcL (0.0-1.3); Monocytes % 8.1 %; Neutrophils # 6.4 K/mcL (1.6-8.9); Platelet Count 231 K/mcL (140-400); Red Blood Count 3.52 M/mcL (3.82-4.97); Red Cell Distribution Width 13.2 % (11.5-14.5); Segmented Neutrophils % 77.3 %
[2017-12-11 20:20] LABS: Prothrombin Time 10.8 Seconds (9.4-12.1)
[2017-12-11 20:23] LABS: Activated Partial Thrombo Time 29.4 Seconds (26.0-36.0)
[2017-12-11 20:32] LABS: Bilirubin,Urine Negative (Negative); Blood,Urine Small (Negative); Clarity,Urine Cloudy (Clear); Color,Urine Yellow (Yellow); Glucose,Urine (UA) 500 mg/dL (Normal); Ketones,Urine Negative (Negative); Leukocyte Esterase,Urine Moderate (Negative); Nitrite,Urine Positive (Negative); Protein,Urine 30 mg/dL (Neg-Trace); Specific Gravity,Urine 1.021 (1.010-1.025); Urobilinogen,Urine Normal (Normal)
[2017-12-11 20:33] LABS: Bacteria,Urine Few per hpf (None-Few); Hyaline Casts,Urine Moderate per lpf (None-Few); RBC,Urine 0-3 per hpf (0-3); Squamous Epithelial Cell,Urine Few per lpf (None-Few); WBC,Urine 50-100 per hpf (0-3)
[2017-12-11 21:00] LABS: BUN/Creatinine Ratio 28 (6-26); Blood Urea Nitrogen 29 mg/dL (8-23); Calcium 7.3 mg/dL (8.6-10.3); Carbon Dioxide 25 mEq/L (23-29); Chloride 102 mEq/L (98-107); Creatine Kinase 1154 Units/L (30-223); Glucose 172 mg/dL (70-105); Osmolality,Calculated 298 (280-300); Potassium 3.4 mEq/L (3.5-5.1); Sodium 139 mEq/L (136-145); Thyroid Stimulating Hormone 2.642 mcIU/mL (0.340-5.600); eGFR For African Americans > 60 (> 60); eGFR For Non-African Americans 51 (> 60)
[2017-12-11] MEDS ORDERED: cefTRIAXone 1,000 MG in Water for inj. (sterile) 20 ML 10 ML IVPB ONE (21:00)
[2017-12-11] MEDS ORDERED: Naloxone 0.4 MG/ML INJ IVP PRN ×2 (22:46→22:47)
--- NOTE | 2017-12-11 23:04 | Internal Med History&Physical ---
Date of Encounter: 12/11/17 Time of Encounter: 23:00 Assessment and Plan (1) UTI (urinary tract infection) Current visit: Yes Status: Acute IV rocephin IVF urine cx pend Qualifiers: Urinary tract infection type: acute cystitis Qualified Code(s): N30.00 - Acute cystitis without hematuria (2) Right sided weakness Current visit: Yes Status: Acute uncertain whether she had an event. Check MRI brain PT/OT speech eval (3) Clavicular fracture Current visit: Yes Status: Acute consult ortho - ED discussed ortho Qualifiers: Encounter type: initial encounter Laterality: left Qualified Code(s): S42.002A - Fracture of unspecified part of left clavicle, initial encounter for closed fracture (4) HTN (hypertension) Current visit: Yes Status: Acute continue med Qualifiers: Qualified Code(s): I10 - Essential (primary) hypertension (5) HTN (hypertension) Current visit: No Status: Acute Qualifiers: Hypertension type: essential hypertension Qualified Code(s): I10 - Essential (primary) hypertension (6) Hypothyroidism Current visit: No Status: Acute Qualifiers: Hypothyroidism type: acquired Qualified Code(s): E03.9 - Hypothyroidism, unspecified Internal Medicine - H&P: HPI Chief complaint: Right side weaknesss, fall History of present illness: Ms. Arrieta is a 82 year old female with hx of "mini-stroke", HTN, hypothyroid who presents with recurrent fall and right sided weakness. At baseline, she lives with and uses a walker occasionally. She has a hx of falls recently and once hit her head prior to her acute fall yesterday. It was unwitnessed and fell from kitchen table with pain over the left shoulder - confirmed to have clavicular fracture. Family also noted the development of right hand and right leg weakness this morning. Last known well > 24 hours yesterday. She is immobile from the weakness. Associated with lethargy. EKG personally reviewed with rate 81, NSR, LVH XR/XR shoulder complete LT IMPRESSION: 1. Acute fracture of the distal left clavicle. Alignment of the acromioclavicular joint is maintained. 2. Osteopenia. XR/XR pelvis AP view IMPRESSION: No acute osseous abnormality of the pelvis. XR/XR wrist complete 3V RT IMPRESSION: No evidence for fracture. CT/CT cervical spine wo con IMPRESSION: 1. No acute findings in the cervical spine. 2. Mild to moderate cervical spine degenerative changes. 3. Bony demineralization. CT/CT head/brain wo con IMPRESSION: No acute intracranial abnormality. Soft tissue hematoma seen overlying the right frontal sinus XR/XR chest 1V portable IMPRESSION: No acute cardiopulmonary process. Past Med Surg Social Fam HX - Past Medical History Medical history: CVA, hypertension, thyroid disease Psychiatric history: no psych history - Past Surgical History Surgical History: thyroidectomy - Social History Smoking Status: Never smoker Smokeless Tobacco Status: No Alcohol use: none Drug use: none - Additional Family History Additional family history: HTN Internal Medicine - H&P: Meds Aspirin [Lo-Dose Aspirin EC] 81 mg PO DAILY 09/29/17 [History] Ergocalciferol (VITAMIN D2) [Vitamin D2] 50,000 unit PO QWEEK 09/29/17 [History] Levothyroxine [Synthroid] 100 mcg PO DAILY 09/29/17 [History] Losartan Potassium [Cozaar] 50 mg PO DAILY 09/29/17 [History] Nitrofurantoin Monohyd/M-Cryst [Macrobid 100 mg Capsule] 100 mg PO BID #14 capsule 10/01/17 [Rx] 3 Allergy/AdvReac Type Severity Reaction Status Date / Time No Known Allergies Allergy Verified 11/17/17 12:28 All Systems PM: A 10-system review of systems was performed and is negative for pertinent findings except as documented above in the HPI. Review of systems: ROS 14 point review of systems reviewed as best as possible given presentation. Pertinent positive or negative as per HPI or otherwise reviewed as negative - Constitutional Vitals: Temp Pulse Resp BP Pulse Ox 98.5 F 81 16 163/85 97 12/11/17 19:39 12/11/17 21:44 12/11/17 22:54 12/11/17 22:54 12/11/17 21:44 Exam: General - AAO x 3 Psych - Appropriate affect/speech. No agitation Eyes - JOSE. Eye lids intact. No scleral icterus Neuro - No gross peripheral or central neuro deficits with intact CN 2-12 exam Heart - Sinus. RRR. S1 and S2 present. No added HS/murmurs appreciated. No elevated JVD appreciated. Lung - Adequate air entry b/l, No crackles/wheezes appreciated GI - Soft, non-tender. No hepatosplenomegaly/ascites. BS+ - No CVA/suprapubic tenderness or palpable bladder distension Internal Med - H&P Results - Labs CBC & Chem 7: 12/11/17 20:00 12/11/17 20:00
[2017-12-12] MEDS: Ringers Solution, Lactated 1,000 ML IVC SCH ×3 (04:00→10:33)
[2017-12-12 04:13] LABS: Basophils % 0.6 %; Eosinophils # 0.2 K/mcL (0.0-0.6); Eosinophils % 2.1 %; Hematocrit 30.8 % (35.3-44.9); Hemoglobin 10.2 g/dL (11.5-15.4); Immature Granulocytes % 0.1 % (0-4); Lymphocytes # 1.6 K/mcL (0.6-4.6); Mean Corpuscular HGB Conc 33.1 g/dL (31.6-35.5); Mean Corpuscular Volume 93.6 fL (83.0-100.0); Mean Platelet Volume 9.8 fL (9.4-12.4); Monocytes # 0.6 K/mcL (0.0-1.3); Monocytes % 8.1 %; Neutrophils # 4.7 K/mcL (1.6-8.9); Platelet Count 197 K/mcL (140-400); Red Blood Count 3.29 M/mcL (3.82-4.97); Red Cell Distribution Width 13.2 % (11.5-14.5); Segmented Neutrophils % 67.1 %
[2017-12-12 04:34] LABS: BUN/Creatinine Ratio 26 (6-26); Blood Urea Nitrogen 23 mg/dL (8-23); Calcium 6.9 mg/dL (8.6-10.3); Carbon Dioxide 27 mEq/L (23-29); Chloride 105 mEq/L (98-107); Chol/HDL Ratio 2.6 (0-4.9); Cholesterol 200 mg/dL (< 200); Glucose 90 mg/dL (70-105); HDL Cholesterol 77 mg/dL (40-59); LDL Cholesterol,Calculated 112 mg/dL (0-99); Osmolality,Calculated 295 (280-300); Potassium 2.9 mEq/L (3.5-5.1); Sodium 141 mEq/L (136-145); Triglycerides 53 mg/dL (< 150); eGFR For African Americans > 60 (> 60); eGFR For Non-African Americans > 60 (> 60)
[2017-12-12] MEDS ORDERED: Potassium Chloride 40 MEQ, Lidocaine 1% 2 ML in D5% in Water 500 ML IVPB ONE (07:55)
[2017-12-12] MEDS: Aspirin Enteric Coated 81 MG Tablet PO SCH (10:25)
--- NOTE | 2017-12-12 15:36 | Internal Med Progress Note ---
Date of Encounter: 12/12/17 Time of Encounter: 09:45 - Assessment and plan (1) Clavicular fracture Current Visit: Yes Status: Acute Assessment and plan: Orthopedics has been consulted. Currently patient is in sling. Will follow orthopedics recommendations. PTOT Qualifiers: Encounter type: initial encounter Laterality: left Qualified Code(s): S42.002A - Fracture of unspecified part of left clavicle, initial encounter for closed fracture (2) Right sided weakness Current Visit: Yes Status: Acute Assessment and plan: Appears to be resolved at this time. Working up for possible TIA/subacute stroke. MRA of the brain ordered. Will await results. Speech therapy evaluation completed. Patient placed on regular textures and thin liquids. She will need help with feeding. PTOT consult. Awaiting evaluation. Continue aspirin. Will start pravastatin. (3) Hypothyroidism Current Visit: Yes Status: Chronic Assessment and plan: Continue levothyroxin Qualifiers: Hypothyroidism type: acquired Qualified Code(s): E03.9 - Hypothyroidism, unspecified (4) DVT prophylaxis Current Visit: Yes Status: Acute Assessment and plan: SCDs and subcutaneous heparin (5) UTI (urinary tract infection) Current Visit: Yes Status: Acute Assessment and plan: Continue ceftriaxone. Awaiting culture results. Qualifiers: Urinary tract infection type: acute cystitis Hematuria presence: without hematuria Qualified Code(s): N30.00 - Acute cystitis without hematuria (6) Elevated CPK Current Visit: Yes Status: Acute Assessment and plan: She has elevated CPK. Likely due to recurrent falls. CPK level has rising compared to yesterday. We will continue IV hydration. Renal function remains stable. (7) Hypokalemia Current Visit: Yes Status: Acute Assessment and plan: Percussion 2.9 this morning. We will replete intravenously and orally. - Subjective Interval history: Patient is lying in bed. Appears comfortable. Has been moving her right upper extremity well. Denies any slurred speech or blurred vision. Reports mild pain in her left upper chest. No dizziness or palpitations. - Constitutional Vitals: Temp Pulse Resp BP Pulse Ox 98.0 F 73 16 177/88 97 12/12/17 10:40 12/12/17 10:40 12/12/17 10:40 12/12/17 10:40 12/12/17 10:40 General appearance: Present: cooperative, A&O X 2, answers questions appropriately - Neck Neck exam general surgery: Present: supple, trachea midline. Absent: lymphadenopathy - Respiratory Respiratory exam: Present: CTAB. Absent: accessory muscle use, rales, rhonchi, wheezes - Cardiovascular Cardiovascular exam: Present: RRR, +S1, +S2. Absent: diastolic murmur, gallop, rubs, systolic murmur - GI/Abdominal GI/Abdominal exam: Present: normal bowel sounds, soft, no peritoneal signs. Absent: distended, tenderness - Extremities Exam Extremities exam: Present: warm, radial pulses palpable and symmetrical. Absent : calf tenderness, cyanotic, pedal edema - Neurological Exam Neurological exam: Present: alert, CN II-XII intact, no focal deficits, strengths equal and symetr throughout. Absent: facial droop, speech deficit Internal Medicine: Result - Labs CBC & Chem 7: 12/12/17 03:07 12/12/17 03:07 Labs: Short CBC 12/12/17 Range/Units 03:07 WBC 7.1 (4.3-11.1) K/mcL Hgb 10.2 L (11.5-15.4) g/dL Hct 30.8 L (35.3-44.9) % Plt Count 197 (140-400) K/mcL Neutrophils # 4.7 (1.6-8.9) K/mcL BMP 12/12/17 03:07 Sodium 141 Potassium 2.9 L Chloride 105 Carbon Dioxide 27 BUN 23 Creatinine 0.87 Glucose 90 Calcium 6.9 L - ABG Interpretation ABG results: PT/INR, D-dimer PT 10.8 Seconds (9.4-12.1) 12/11/17 20:00 Consult Discharge Plan - Plan Referrals: Adarsh Dior MD [Primary Care Provider] -
[2017-12-12] MEDS: D5% in 0.45% NACL 1,000 ML IVC SCH (17:16)
[2017-12-12] MEDS: *HR* Heparin 5,000 UNIT/ML VIAL SQ SCH (17:16)
--- NOTE | 2017-12-12 17:35 | Orthopedic Consult Note ---
Date of Encounter: 12/12/17 Time of Encounter: 17:32 Assessment and Plan (1) Closed left clavicular fracture Current Visit: Yes Status: Acute Discussed with Dr. Osullivan. Will plan for nonoperative treatment at this time regarding left clavicle fracture secondary to patient's ongoing stroke work up and other medical comorbidities. Will follow patient to see if stabilizes while inpatient and will consider possible Clavicle ORIF with possible AC stabilization as an outpatient only after speaking with family/POA. It is recommended she follow up as outpatient for fracture care with sports medicine. Will arrange appt for patient. Recommend simple sling for comfort and reduced shoulder disruption. PT/OT for left elbow, wrist, and hand and RUE ROM. Thank you for this consultation. Please reach out with any questions or concerns. Qualifiers: Encounter type: initial encounter Clavicle location: lateral end Fracture alignment: displaced Qualified Code(s): S42.032A - Displaced fracture of lateral end of left clavicle, initial encounter for closed fracture History of Present Illness Chief complaint: left shoulder pain HPI: Ms. Arrieta is a 82 year old female presenting to [facility] ED with possible stroke following multiple recent falls and onset of left shoulder pain. She is currently being worked up for the stroke and ortho was consulted for the left shoulder pain after acute clavicle fracture was observed on xrays. On exam patient is asleep in bed. She is easily awakened. She has ecchymosis noted to the left shoulder and lateral chest wall. She is very thin body habitus. She is alert however not oriented except to person. Right hand noted to be contracted and spastic. Patient unable to relax right hand and wrist. She is noted to have several bandaids to the right hand with ecchymosis. Left shoulder is relatively nontender. She is guarded and does not move the left shoulder. She is able to range the left elbow, wrist, and hand pain free. Neurovascularly intact to bilateral upper extremities. XR/XR shoulder complete LT IMPRESSION: 1. Acute fracture of the distal left clavicle. Alignment of the acromioclavicular joint is maintained. 2. Osteopenia. D/ / Jesus Garcia MD / Jesus Garcia MD Interpreting Provider: Jesus Garcia MD Discussed with Dr. Osullivan. Will plan for nonoperative treatment at this time regarding left clavicle fracture secondary to patient's ongoing stroke work up and other medical comorbidities. Will follow patient to see if stabilizes while inpatient and will consider possible Clavicle ORIF with possible AC stabilization as an outpatient only after speaking with family/POA. It is recommended she follow up as outpatient for fracture care with sports medicine. Will arrange appt for patient. Recommend simple sling for comfort and reduced shoulder disruption. PT/OT for left elbow, wrist, and hand and RUE ROM. Thank you for this consultation. Please reach out with any questions or concerns. Past Med Surg Social Fam HX - Past Medical History Medical history: CVA, hypertension, thyroid disease Psychiatric history: no psych history - Past Surgical History Surgical History: thyroidectomy - Social History Smoking Status: Never smoker Smokeless Tobacco Status: No Alcohol use: none Drug use: none - Family History Brother Hx Family Cancer: Yes Sister Hx Family Cancer: Yes (breast) Medications and Allergies Aspirin [Lo-Dose Aspirin EC] 81 mg PO DAILY 09/29/17 [History] Ergocalciferol (VITAMIN D2) [Vitamin D2] 50,000 unit PO QWEEK 09/29/17 [History] Levothyroxine [Synthroid] 100 mcg PO DAILY 09/29/17 [History] Calcium Carbonate [Calcium] 1,800 mg PO DAILY 12/12/17 [History] 3 Allergy/AdvReac Type Severity Reaction Status Date / Time No Known Allergies Allergy Verified 12/12/17 08:58 All Systems Reviewed: A 10-system review of systems was performed and is negative for pertinent findings except as documented above in the HPI. Physical Exam - Constitutional Vitals: Temp Pulse Resp BP Pulse Ox 97.9 F 75 16 152/79 95 12/12/17 16:13 12/12/17 16:13 12/12/17 16:13 12/12/17 16:13 12/12/17 16:13 Results - Labs Result Diagrams: 12/12/17 03:07 12/12/17 03:07 Labs: Abnormal lab results RBC 3.29 M/mcL (3.82-4.97) L 12/12/17 03:07 Hgb 10.2 g/dL (11.5-15.4) L 12/12/17 03:07 Hct 30.8 % (35.3-44.9) L 12/12/17 03:07 Potassium 2.9 mEq/L (3.5-5.1) L 12/12/17 03:07 Calcium 6.9 mg/dL (8.6-10.3) L 12/12/17 03:07 Creatine Kinase 1203 Units/L (30-223) H 12/12/17 03:07 Cholesterol 200 mg/dL (< 200) H 12/12/17 03:07 LDL Cholesterol, Calc 112 mg/dL (0-99) H 12/12/17 03:07 HDL Cholesterol 77 mg/dL (40-59) H 12/12/17 03:07 Urine Clarity Cloudy (Clear) A 12/11/17 20:18 Urine Protein 30 mg/dL (Neg-Trace) H 12/11/17 20:18 Urine Glucose (UA) 500 mg/dL (Normal) H 12/11/17 20:18 Urine Blood Small (Negative) H 12/11/17 20:18 Urine Nitrite Positive (Negative) A 12/11/17 20:18 Ur Leukocyte Esterase Moderate (Negative) H 12/11/17 20:18 Urine Microscopic WBC 50-100 per hpf (0-3) H 12/11/17 20:18 Hyaline Casts Moderate per lpf (None-Few) H 12/11/17 20:18 Ur Culture Indicated? YES (NO) A 12/11/17 20:18 H & H 12/12/17 Range/Units 03:07 Hgb 10.2 L (11.5-15.4) g/dL Hct 30.8 L (35.3-44.9) % All other labs normal. Consult Discharge Plan - Plan Referrals: Adarsh Dior MD [Primary Care Provider] -
[2017-12-12] MEDS: cefTRIAXone 1,000 MG in Water for inj. (sterile) 20 ML 10 ML IVPB SCH (21:17)
[2017-12-13] MEDS: *HR* Heparin 5,000 UNIT/ML VIAL SQ SCH ×2 (05:18→17:48)
[2017-12-13] MEDS: D5% in 0.45% NACL 1,000 ML IVC SCH ×4 (05:21→23:15)
[2017-12-13 05:47] LABS: Basophils % 0.6 %; Eosinophils # 0.1 K/mcL (0.0-0.6); Eosinophils % 1.7 %; Hematocrit 32.9 % (35.3-44.9); Hemoglobin 10.5 g/dL (11.5-15.4); Immature Granulocytes % 0.4 % (0-4); Lymphocytes # 1.2 K/mcL (0.6-4.6); Lymphocytes % 16.9 %; Mean Corpuscular HGB Conc 31.9 g/dL (31.6-35.5); Monocytes # 0.6 K/mcL (0.0-1.3); Monocytes % 8.4 %; Neutrophils # 5.1 K/mcL (1.6-8.9); Platelet Count 220 K/mcL (140-400); Red Cell Distribution Width 13.2 % (11.5-14.5)
[2017-12-13 06:07] LABS: BUN/Creatinine Ratio 16 (6-26); Blood Urea Nitrogen 13 mg/dL (8-23); Calcium 6.6 mg/dL (8.6-10.3); Carbon Dioxide 26 mEq/L (23-29); Chloride 102 mEq/L (98-107); Glucose 94 mg/dL (70-105); Osmolality,Calculated 290 (280-300); Potassium 3.7 mEq/L (3.5-5.1); Sodium 140 mEq/L (136-145); eGFR For African Americans > 60 (> 60); eGFR For Non-African Americans > 60 (> 60)
[2017-12-13] MEDS: Aspirin Enteric Coated 81 MG Tablet PO SCH (08:16)
--- NOTE | 2017-12-13 16:03 | Internal Med Progress Note ---
Date of Encounter: 12/13/17 Time of Encounter: 10:10 - Assessment and plan (1) Dementia Current Visit: No Status: Acute Assessment and plan: Patient today was alert, oriented to only name. She was easily able to recall information afterwards presented. Patient may have some acute metabolic encephalopathy secondary to urinary tract infection, though she is being treated with antibiotics and is asymptomatic, no fever no white count or tachycardia, no hypotension. I Believe that patient has some baseline dementia. She does not take any medications at home for dementia. Patient is close to the nurses station Monitor for safety and falls Due to patient's decline in mobility and ability to perform ADLs, patient will be placed in [facility] when she is medically cleared. Continue to monitor patient overnight, potential discharge tomorrow. Qualifiers: Dementia type: vascular dementia Dementia behavioral disturbance: without behavioral disturbance Qualified Code(s): F01.50 - Vascular dementia without behavioral disturbance (2) DVT prophylaxis Current Visit: Yes Status: Acute Assessment and plan: Subcutaneous heparin, SCDs ordered. (3) Right sided weakness Current Visit: Yes Status: Acute Assessment and plan: Difficult to ascertain rate upper extremity weakness at this time. Patient reports that she does not have any recollection of right-sided weakness. Patient's right hand is contractured and she is unable to use it or maneuver it. She reports to me that she normally eats right handed. I have been unable to reach patient's today to discuss duration of time the patient has had this condition. Patient has strong and equal strength bilaterally to lower extremities. Facial movement is symmetrical. MRI of the brain was negative for acute disease, although there was moderate atrophy and microangiopathic changes. Head CT is negative for any acute intracranial abnormality, there is soft tissue hematoma seen overlying the right frontal sinus. Hematoma is also noted on physical exam. Chest x-ray is negative for any acute cardiopulmonary process. It is recommended the patient have [facility] Patient is accepted at [facility]. Potential discharge tomorrow if patient remains stable. (4) UTI (urinary tract infection) Current Visit: Yes Status: Acute Assessment and plan: Initial urine culture shows gram-negative rods. Patient is being treated with ceftriaxone 1 g IV daily. Sensitivity is still pending at this time. Narrow antibiotics once sensitivities available. Qualifiers: Urinary tract infection type: acute cystitis Hematuria presence: without hematuria Qualified Code(s): N30.00 - Acute cystitis without hematuria (5) Hypokalemia Current Visit: Yes Status: Resolved (6) Closed left clavicular fracture Current Visit: Yes Status: Acute Assessment and plan: Patient presented to the emergency room with left clavicle fracture sustained in fall at home prior to arrival. She has been evaluated by orthopedics who planned for nonoperative treatment due to her stroke workup and UTI. Patient will need to follow in the office. At that time, clavicle ORIF with possible before meals stabilization as an outpatient as potential outcome. She is wearing a sling at this time and is recommended she follow up with sports medicine for continued monitoring and evaluation. Orthopedics is going to arrange for an appointment. Continue PT/OT. Pain control as needed. Qualifiers: Encounter type: initial encounter Clavicle location: lateral end Fracture alignment: displaced Qualified Code(s): S42.032A - Displaced fracture of lateral end of left clavicle, initial encounter for closed fracture - Time Spent With Patient less than 15 minutes - Subjective Interval history: Pt was seen and assessed at bedside at 1010 a.m. Pt was drowsy, aroused easily to verbal stimuli. She was alert and oriented to name only. She was unable to name the month of the year and believes that she was in [place]. Patient easily recalls information after she is given the information. Patient has contractured right hand and is unable to utilize it to eat right. There is no mention of this and any prior note and I have been unavailable to reach patient's by phone. Primary nurse give the patient yesterday, as well as in the past, states that this is normal for patient. She denies headache, blurred vision, neck pain, dizziness. She denies any chest pain or shortness of breath, no nausea, no vomiting, no diarrhea. On exam, patient does not appear to have any right-sided weakness and patient states that she was not sure that she ever had that. At this time we are still waiting on PT, OT, and speech therapy. - Constitutional Vitals: Temp Pulse Resp BP Pulse Ox 98.5 F 79 15 151/87 100 12/13/17 15:34 12/13/17 15:34 12/13/17 15:34 12/13/17 15:34 12/13/17 15:34 General appearance: Present: cooperative, A&O X 2, pleasant, no acute distress. Absent: answers questions appropriately - Head Head exam: Present: normocephalic. Absent: atraumatic, normal inspection - Expanded Head Exam Head exam expanded: Present: contusion 1 - Contusion to forehead from fall. - Eye Eye exam: Present: EOMI, normal appearance, PERRL, conjuntiva pink, sclera anicteric. Absent: nystagmus - Neck Neck exam general surgery: Present: normal inspection, supple, trachea midline. Absent: lymphadenopathy, tenderness - Respiratory Respiratory exam: Present: CTAB. Absent: accessory muscle use, chest wall tenderness, rales, rhonchi, wheezes - Cardiovascular Cardiovascular exam: Present: RRR, +S1, +S2. Absent: bradycardia, diastolic murmur, gallop, rubs, systolic murmur, tachycardia - GI/Abdominal GI/Abdominal exam: Present: normal bowel sounds, soft. Absent: distended, hepatomegaly, tenderness - Extremities Exam Extremities exam: Present: normal capillary refill, normal inspection, warm, radial pulses palpable and symmetrical. Absent: calf tenderness, cyanotic, pedal edema, tenderness - Neurological Exam Neurological exam: Present: alert, oriented X3, no focal deficits. Absent: facial droop, speech deficit - Skin Skin exam: Present: dry, intact, normal color, warm. Absent: rash Internal Medicine: Result - Labs CBC & Chem 7: 12/13/17 03:56 12/13/17 03:56 Labs: Short CBC 12/13/17 Range/Units 03:56 WBC 7.1 (4.3-11.1) K/mcL Hgb 10.5 L (11.5-15.4) g/dL Hct 32.9 L (35.3-44.9) % Plt Count 220 (140-400) K/mcL Neutrophils # 5.1 (1.6-8.9) K/mcL BMP 12/13/17 03:56 Sodium 140 Potassium 3.7 Chloride 102 Carbon Dioxide 26 BUN 13 Creatinine 0.83 Glucose 94 Calcium 6.6 L - ABG Interpretation ABG results: PT/INR, D-dimer PT 10.8 Seconds (9.4-12.1) 12/11/17 20:00 - Impressions Impressions Brain MRI 12/12/17 22:45 IMPRESSION: Moderate atrophy and microangiopathic changes. No acute disease. D/ / 12/12/2017 17:02:25 Darren Harris MD / Luzma Fabian Interpreting Provider: Darren Harris MD Consult Discharge Plan - Plan Referrals: Adarsh Dior MD [Primary Care Provider] - 12/27/17 12:45 pm
[2017-12-13] MEDS: cefTRIAXone 1,000 MG in Water for inj. (sterile) 20 ML 10 ML IVPB SCH (20:05)
[2017-12-14] MEDS: Ringers Solution, Lactated 1,000 ML IVC SCH (04:15)
[2017-12-14 05:10] LABS: Basophils % 0.6 %; Eosinophils # 0.1 K/mcL (0.0-0.6); Hematocrit 31.5 % (35.3-44.9); Hemoglobin 10.2 g/dL (11.5-15.4); Immature Granulocytes % 0.3 % (0-4); Lymphocytes # 1.2 K/mcL (0.6-4.6); Lymphocytes % 18.9 %; Mean Corpuscular HGB Conc 32.4 g/dL (31.6-35.5); Mean Corpuscular Hemoglobin 30.4 pg (28.0-33.3); Mean Corpuscular Volume 93.8 fL (83.0-100.0); Mean Platelet Volume 9.7 fL (9.4-12.4); Monocytes # 0.5 K/mcL (0.0-1.3); Monocytes % 7.8 %; Neutrophils # 4.5 K/mcL (1.6-8.9); Platelet Count 215 K/mcL (140-400); Red Blood Count 3.36 M/mcL (3.82-4.97); Red Cell Distribution Width 13.1 % (11.5-14.5); Segmented Neutrophils % 70.4 %
[2017-12-14] MEDS: *HR* Heparin 5,000 UNIT/ML VIAL SQ SCH ×2 (05:25→17:26)
[2017-12-14] MEDS: D5% in 0.45% NACL 1,000 ML IVC SCH ×2 (06:38→17:17)
[2017-12-14] MEDS: Aspirin Enteric Coated 81 MG Tablet PO SCH (08:17)
[2017-12-14] MEDS: Piperacillin/Tazobactam 3.375 GM/200 ML BAG IVPB SCH ×3 (08:48→23:12)
--- NOTE | 2017-12-14 11:38 | Neurology - Consult Note ---
Date of Encounter: 12/14/17 Time of Encounter: 11:36 Assessment and Plan (1) Encephalopathy Current Visit: Yes Status: Acute Likely acute on chronic in the setting of dementia as well as UTI. Acute findings are likely driven by her underlying infection. There does seem to be gradual improvement. Recommend continued treatment of her urinary tract infection per primary. 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 Given her acute encephalopathy as above would not recommend starting therapy at this time. Recommend outpatient follow-up in 2 weeks and will consider starting treatment at that time. (3) Wrist drop, right wrist Current Visit: Yes Status: Acute Patient appears to have wristdrop of her right wrist with inability to extend her right wrist. Concern for a radial neuropathy, possibly compressive. Agree with Ortho evaluation and bracing recommend follow-up and EMG as an outpatient. (4) Dementia Current Visit: No Status: Acute Qualifiers: Dementia type: vascular dementia Dementia behavioral disturbance: without behavioral disturbance Qualified Code(s): F01.50 - Vascular dementia without behavioral disturbance (5) UTI (urinary tract infection) Current Visit: Yes Status: Acute Further management per primary Qualifiers: Urinary tract infection type: acute cystitis Qualified Code(s): N30.00 - Acute cystitis without hematuria History of Present Illness Chief complaint: AMS HPI: Ms. Arrieta is a 82 year old female with history of hypothyroidism presented with falls and weakness. Patient is not a reliable historian so most of the history is obtained from the medical record. Patient is apparently relatively high functioning at baseline, ambulates with a walker and is able to do her own shopping and activities of daily living. She was brought in by family due to recurrent falls and right-sided weakness. This morning she is awake, alert, and oriented to person and place. She is able to give us a year but had difficulty remembering the season. She has no specific complaints. Past Med Surg Social Fam HX - Past Medical History Medical history: CVA, hypertension, thyroid disease Psychiatric history: no psych history - Past Surgical History Surgical History: thyroidectomy - Social History Smoking Status: Never smoker Smokeless Tobacco Status: No Alcohol use: none Drug use: none - Family History Brother Hx Family Cancer: Yes Sister Hx Family Cancer: Yes (breast) Medications and Allergies Aspirin [Lo-Dose Aspirin EC] 81 mg PO DAILY 09/29/17 [History] Ergocalciferol (VITAMIN D2) [Vitamin D2] 50,000 unit PO QWEEK 09/29/17 [History] Levothyroxine [Synthroid] 100 mcg PO DAILY 09/29/17 [History] Calcium Carbonate [Calcium] 1,800 mg PO DAILY 12/12/17 [History] 3 Allergy/AdvReac Type Severity Reaction Status Date / Time No Known Allergies Allergy Verified 12/12/17 08:58 ROS unobtainable: due to mental status All Systems: A 10-system review of systems was performed and is negative for pertinent findings except as documented above in the HPI. 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 Motor examination - left side: 4/5: wrist flexion, wrist extension, quadriceps, plantarflexion Detailed sensory examination: intact Reflex and gait examination: other (Gait not assessed) Reflexes: Biceps: 2+, Brachioradialis: 2+, Patella: 2+, Achilles: 2+ Mental Status Examination: awake, alert, oriented to person, oriented to place, drowsy, follows simple commands, inattentive, demented, impaired memory, impaired cognition, not reliable historian Cranial nerve examination: PERRL, EOMI, mastication intact, no facial asymmetry is present, no dysarthria, tongue protrudes midline, no atrophy or facial fasiculations present Cerebellar examination: dysarthria Tremor: right upper extremity Results - Laboratory Findings CBC and BMP: 12/14/17 04:24 12/13/17 03:56 Abnormal lab findings: Abnormal lab results RBC 3.36 M/mcL (3.82-4.97) L 12/14/17 04:24 Hgb 10.2 g/dL (11.5-15.4) L 12/14/17 04:24 Hct 31.5 % (35.3-44.9) L 12/14/17 04:24 Calcium 6.6 mg/dL (8.6-10.3) L 12/13/17 03:56 Creatine Kinase 1179 Units/L (30-223) H 12/14/17 04:24 Cholesterol 200 mg/dL (< 200) H 12/12/17 03:07 LDL Cholesterol, Calc 112 mg/dL (0-99) H 12/12/17 03:07 HDL Cholesterol 77 mg/dL (40-59) H 12/12/17 03:07 Urine Clarity Cloudy (Clear) A 12/11/17 20:18 Urine Protein 30 mg/dL (Neg-Trace) H 12/11/17 20:18 Urine Glucose (UA) 500 mg/dL (Normal) H 12/11/17 20:18 Urine Blood Small (Negative) H 12/11/17 20:18 Urine Nitrite Positive (Negative) A 12/11/17 20:18 Ur Leukocyte Esterase Moderate (Negative) H 12/11/17 20:18 Urine Microscopic WBC 50-100 per hpf (0-3) H 12/11/17 20:18 Hyaline Casts Moderate per lpf (None-Few) H 12/11/17 20:18 Ur Culture Indicated? YES (NO) A 12/11/17 20:18 Consult Discharge Plan - Plan Referrals: Adarsh Dior MD [Primary Care Provider] - 12/27/17 12:45 pm
--- NOTE | 2017-12-14 14:17 | Internal Med Progress Note ---
Date of Encounter: 12/14/17 Time of Encounter: 11:00 - Assessment and plan (1) Dementia Current Visit: No Status: Acute Assessment and plan: Mentation has improved. She was easily able to recall information afterwards presented. Patient may have some acute metabolic encephalopathy secondary to urinary tract infection, I Believe that patient has some baseline dementia, as well. Patient is close to the nurses station Monitor for safety and falls Due to patient's decline in mobility and ability to perform ADLs, patient will be placed in [facility] when she is medically cleared. Continue to monitor patient Qualifiers: Dementia type: vascular dementia Dementia behavioral disturbance: without behavioral disturbance Qualified Code(s): F01.50 - Vascular dementia without behavioral disturbance (2) DVT prophylaxis Current Visit: Yes Status: Acute Assessment and plan: Subcutaneous heparin, SCDs ordered. (3) Right sided weakness Current Visit: Yes Status: Acute Assessment and plan: Difficult to ascertain right upper extremity weakness at this time. Patient's right hand is contractured and she is unable to use it or maneuver it , improved today. She reports to me that she normally eats right handed. I was able to speak with family yesterday to report that all of the right hand contracture, muscle rigidity, and weakness, as well as confusion started 3-4 days ago. They report that they have before admission patient was able to walk throughout [employer] in to and from a car with her walker and tolerated well. Patient has strong and equal strength bilaterally to lower extremities. Facial movement is symmetrical. MRI of the brain was negative for acute disease, although there was moderate atrophy and microangiopathic changes. Head CT is negative for any acute intracranial abnormality, there is soft tissue hematoma seen overlying the right frontal sinus. Hematoma is also noted on physical exam. Chest x-ray is negative for any acute cardiopulmonary process. It is recommended the patient have physical therapy and occupational therapy at nursing home facility. Patient is accepted at [facility]. Potential discharge tomorrow if patient remains stable. She has been evaluated by neurology and diagnosed with parkinsonian features. Is not recommended at this time to start any treatment due to acute encephalopathy. Patient will need to follow-up in the office in 2 weeks. (4) UTI (urinary tract infection) Current Visit: Yes Status: Acute Assessment and plan: Final urine culture positive for Pseudomonas aeruginosa. Nandini biotic has been changed to Zosyn 3.37 g every 6 hours IV. Qualifiers: Urinary tract infection type: acute cystitis Hematuria presence: without hematuria Qualified Code(s): N30.00 - Acute cystitis without hematuria (5) Hypokalemia Current Visit: Yes Status: Resolved Assessment and plan: Resolved (6) Closed left clavicular fracture Current Visit: Yes Status: Acute Assessment and plan: Patient presented to the emergency room with left clavicle fracture sustained in fall at home prior to arrival. She has been evaluated by orthopedics who planned for nonoperative treatment due to her stroke workup and UTI. Patient will need to follow in the office. At that time, clavicle ORIF with possible before meals stabilization as an outpatient as potential outcome. She is wearing a sling at this time and is recommended she follow up with sports medicine for continued monitoring and evaluation. Orthopedics is going to arrange for an appointment. Continue PT/OT. Pain control as needed. Qualifiers: Encounter type: initial encounter Clavicle location: lateral end Fracture alignment: displaced Qualified Code(s): S42.032A - Displaced fracture of lateral end of left clavicle, initial encounter for closed fracture (7) Parkinsonian features Current Visit: Yes Status: Acute Assessment and plan: Patient with cogwheel rigidity, new onset tremor. She has been evaluated by neurology, Dr. Rios does not recommend starting therapy at this time. Patient will follow-up in the office in 2 weeks consider treatment at that time. (8) Wrist drop, right wrist Current Visit: Yes Status: Acute Assessment and plan: Sudden onset date prior to arrival. Patient was able to use her wrist and hand to manipulate her walker. patient will have ortho evaluation and bracing. Neurology recommends follow- up and EMG as an outpatient. Ortho consult in and pending. - Time Spent With Patient less than 15 minutes - Subjective Interval history: Pt was seen and assessed at bedside at 1100 a.m. Pt was drowsy, aroused easily to verbal stimuli. She was alert and oriented to name, place, and president. She was unable to name the month of the year and believes that she was in [place] orignially. Right hand seems to have improved some today and is not rigid and pt can grasp with fingers today. I was able to speak with her family who report that contracture, muscle rigidity, and confusion were acute onset 4 days ago. She denies headache, blurred vision, neck pain, dizziness. She denies any chest pain or shortness of breath, no nausea, no vomiting, no diarrhea. - Constitutional Vitals: Temp Pulse Resp BP Pulse Ox 97.8 F 71 18 129/64 98 12/14/17 10:59 12/14/17 10:59 12/14/17 10:59 12/14/17 10:59 12/14/17 10:59 General appearance: Present: cooperative, A&O X 2, pleasant, no acute distress. Absent: answers questions appropriately - Head Head exam: Present: atraumatic, normal inspection, normocephalic - Eye Eye exam: Present: normal appearance, conjuntiva pink, sclera anicteric - Neck Neck exam general surgery: Present: supple, trachea midline. Absent: lymphadenopathy, tenderness - Respiratory Respiratory exam: Present: CTAB. Absent: accessory muscle use, chest wall tenderness, decreased breath sounds, rales, respiratory distress, rhonchi, wheezes - Cardiovascular Cardiovascular exam: Present: RRR, +S1, +S2. Absent: diastolic murmur, gallop, rubs, systolic murmur - GI/Abdominal GI/Abdominal exam: Present: normal bowel sounds, soft. Absent: distended, hepatomegaly, tenderness - Extremities Exam Extremities exam: Present: normal capillary refill, warm, radial pulses palpable and symmetrical. Absent: calf tenderness, cyanotic, pedal edema - Neurological Exam Neurological exam: Present: alert, oriented X3, no focal deficits. Absent: facial droop, speech deficit - Skin Skin exam: Present: dry, intact, normal color, warm. Absent: rash Internal Medicine: Result - Labs CBC & Chem 7: 12/14/17 04:24 12/13/17 03:56 Labs: Short CBC 12/14/17 Range/Units 04:24 WBC 6.4 (4.3-11.1) K/mcL Hgb 10.2 L (11.5-15.4) g/dL Hct 31.5 L (35.3-44.9) % Plt Count 215 (140-400) K/mcL Neutrophils # 4.5 (1.6-8.9) K/mcL - ABG Interpretation ABG results: PT/INR, D-dimer PT 10.8 Seconds (9.4-12.1) 12/11/17 20:00 Consult Discharge Plan - Plan Referrals: Adarsh Dior MD [Primary Care Provider] - 12/27/17 12:45 pm
--- NOTE | 2017-12-14 22:11 | Orthopedics Progress Note ---
Date of Encounter: 12/14/17 Time of Encounter: 22:07 Subjective Interval history: S: Orthopedics as are reevaluated the patient regarding a left clavicle fracture which is being managed nonoperatively. We are asked to see the patient again regarding right upper extremity weakness and a wrist drop. I am unable to obtain any history from the patient who has confusion. Apparently the patient' s right upper extremity was functionally normally up to recently however today there was noted to be the wrist drop. On my evaluation the patient does not complain of any pain to the right upper extremity. She does not verbalize any complaints at this time. No known injuries to the right upper extremity. She has been worked up by neurology and the stroke workup was negative but she was found to have parkinsonian-like features. O: Afebrile and vital signs are stable Right upper extremity has no signs of trauma other than some small skin tears along the dorsal wrist. No deformities noted other than that she keeps her wrist in a fixed position. Compartments are all soft and compressible. No tenderness to palpation throughout. I do note significant rigidity of the right upper extremity throughout though I am able to overcome this passively and range the elbow, wrist, and digits through nearly normal range of motion. I am able to form a meaningful neurologic exam given her mental status and she is not following commands to motor the digits. The fingertips are all grossly perfused, with good capillary refill. A: Right wrist drop, possible Tuesday night palsy versus Parkinson's rigidity. P: At this point there is no surgical intervention necessary from an orthopedic standpoint regarding the right upper extremity. Observation of the wristdrop at this point is indicated as this could be a Tuesday night palsy which may resolve on its own but could take months. Deferred treatment for parkinsonian-like features to neurology and the primary team. We will sign off at this point to be available as needed for reconsultation. Follow-up with our sports medicine physicians in the office for outpatient management. Objective Vital signs: Vital Signs Temp Pulse Resp BP Pulse Ox 12/14/17 19:27 97.9 F 89 14 106/57 95 12/14/17 16:28 98.9 F 72 17 145/69 97 12/14/17 10:59 97.8 F 71 18 129/64 98 12/14/17 07:28 98.8 F 73 14 151/69 96 12/14/17 03:51 97.7 F 71 14 140/68 97 12/13/17 23:08 98.3 F 74 14 153/72 91 Intake and Output 12/14/17 12/14/17 12/14/17 07:59 15:59 23:59 Intake Total 1000 / 1000 200 / 200 1000 / 1000 Balance 1000 / 1000 200 / 200 1000 / 1000 Intake: IV Fluids 1000 / 1000 200 / 200 1000 / 1000 D5% And 0.45% Nacl 1000 Ml Bag 1000 / 1000 1000 / 1000 1,000 ML @ 125 mls/hr IVC .Q8H SUSSY Rx#:[id number] Zosyn Premix 3.375 GM/200 ML 3. 200 / 200 375 gm In 200 ml @ 50 mls/hr IVPB Q8H SUSSY Rx#:[id number] Other: # Urine Diapers 1 1 Weight 56.7 kg Patient Weight 12/14/17 23:59 Weight 56.7 kg - Labs CBC & BMP: 12/14/17 04:24 12/13/17 03:56 Labs: Abnormal lab results RBC 3.36 M/mcL (3.82-4.97) L 12/14/17 04:24 Hgb 10.2 g/dL (11.5-15.4) L 12/14/17 04:24 Hct 31.5 % (35.3-44.9) L 12/14/17 04:24 Calcium 6.6 mg/dL (8.6-10.3) L 12/13/17 03:56 Creatine Kinase 1179 Units/L (30-223) H 12/14/17 04:24 Cholesterol 200 mg/dL (< 200) H 12/12/17 03:07 LDL Cholesterol, Calc 112 mg/dL (0-99) H 12/12/17 03:07 HDL Cholesterol 77 mg/dL (40-59) H 12/12/17 03:07 Urine Clarity Cloudy (Clear) A 12/11/17 20:18 Urine Protein 30 mg/dL (Neg-Trace) H 12/11/17 20:18 Urine Glucose (UA) 500 mg/dL (Normal) H 12/11/17 20:18 Urine Blood Small (Negative) H 12/11/17 20:18 Urine Nitrite Positive (Negative) A 12/11/17 20:18 Ur Leukocyte Esterase Moderate (Negative) H 12/11/17 20:18 Urine Microscopic WBC 50-100 per hpf (0-3) H 12/11/17 20:18 Hyaline Casts Moderate per lpf (None-Few) H 12/11/17 20:18 Ur Culture Indicated? YES (NO) A 12/11/17 20:18 - VTE Documentation of Mechanical Device: Intermittent pneumatic compression device Consult Discharge Plan - Plan Referrals: Adarsh Dior MD [Primary Care Provider] - 12/27/17 12:45 pm
[2017-12-15] MEDS: D5% in 0.45% NACL 1,000 ML IVC SCH ×2 (04:10→11:08)
[2017-12-15] MEDS: *HR* Heparin 5,000 UNIT/ML VIAL SQ SCH ×2 (05:45→21:17)
[2017-12-15 08:17] LABS: Basophils % 0.3 %; Eosinophils # 0.1 K/mcL (0.0-0.6); Eosinophils % 2.3 %; Hematocrit 30.4 % (35.3-44.9); Hemoglobin 9.8 g/dL (11.5-15.4); Immature Granulocytes % 0.3 % (0-4); Lymphocytes # 1.1 K/mcL (0.6-4.6); Lymphocytes % 18.5 %; Mean Corpuscular HGB Conc 32.2 g/dL (31.6-35.5); Mean Corpuscular Hemoglobin 30.2 pg (28.0-33.3); Mean Corpuscular Volume 93.5 fL (83.0-100.0); Mean Platelet Volume 9.5 fL (9.4-12.4); Monocytes # 0.5 K/mcL (0.0-1.3); Monocytes % 8.7 %; Neutrophils # 4.2 K/mcL (1.6-8.9); Platelet Count 187 K/mcL (140-400); Red Blood Count 3.25 M/mcL (3.82-4.97); Red Cell Distribution Width 13.2 % (11.5-14.5); Segmented Neutrophils % 69.9 %
[2017-12-15 08:31] LABS: BUN/Creatinine Ratio 11 (6-26); Blood Urea Nitrogen 11 mg/dL (8-23); Calcium 5.9 mg/dL (8.6-10.3); Carbon Dioxide 26 mEq/L (23-29); Chloride 106 mEq/L (98-107); Glucose 111 mg/dL (70-105); Osmolality,Calculated 286 (280-300); Potassium 4.1 mEq/L (3.5-5.1); Sodium 138 mEq/L (136-145); eGFR For African Americans > 60 (> 60); eGFR For Non-African Americans 54 (> 60)
[2017-12-15 09:15] LABS: Creatine Kinase 841 Units/L (30-223); Magnesium 1.5 mg/dL (1.6-2.6)
[2017-12-15] MEDS: Piperacillin/Tazobactam 3.375 GM/200 ML BAG IVPB SCH ×2 (11:07→21:39)
[2017-12-15] MEDS: 0.9 % Sodium Chloride 1,000 ML IVC SCH (11:07)
[2017-12-15] MEDS: Aspirin Enteric Coated 81 MG Tablet PO SCH (11:08)
--- NOTE | 2017-12-15 15:30 | Internal Med Progress Note ---
Date of Encounter: 12/15/17 Time of Encounter: 09:30 - Assessment and plan (1) Dementia Current Visit: No Status: Acute Assessment and plan: Mentation and overall level of consciousness has improved, although her orientation seems to wax and wane throughout the day. I Believe that patient has some baseline dementia and has been reports that over the last 6 months he has noticed a decline in her memory and overall level of functioning. Patient is close to the nurses station Monitor for safety and falls Due to patient's decline in mobility and ability to perform ADLs, patient will be placed in [facility] when she is medically cleared. Continue to monitor patient Qualifiers: Dementia type: vascular dementia Dementia behavioral disturbance: without behavioral disturbance Qualified Code(s): F01.50 - Vascular dementia without behavioral disturbance (2) DVT prophylaxis Current Visit: Yes Status: Acute Assessment and plan: Subcutaneous heparin, SCDs ordered. (3) Right sided weakness Current Visit: Yes Status: Acute Assessment and plan: Patient's right hand is contractured and she is unable to use it or maneuver it , improving. Patient's lower extremity strength is strong and equal bilaterally. Facial movement is symmetrical. MRI of the brain was negative for acute disease, although there was moderate atrophy and microangiopathic changes. Head CT is negative for any acute intracranial abnormality, there is soft tissue hematoma seen overlying the right frontal sinus. Hematoma is also noted on physical exam. Chest x-ray is negative for any acute cardiopulmonary process. It is recommended the [facility] Patient [facility] accepted at [facility]. She has been evaluated by neurology and diagnosed with parkinsonian features. Is not recommended at this time to start any treatment due to acute encephalopathy. Patient will need to follow-up in the office in 2 weeks. Patient has been evaluated by the PDX 4 right wrist drop. Orthopedics suspects possible Tuesday night palsy versus Parkinson's rigidity. May take months to resolve, patient will need to follow up with sports medicine in the office on outpatient basis for continued evaluation. (4) UTI (urinary tract infection) Current Visit: Yes Status: Acute Assessment and plan: Final urine culture positive for Pseudomonas aeruginosa. Antibiotic has been changed to Zosyn 3.37 g every 6 hours IV. Pt will be discharged with rx for ECF. Qualifiers: Urinary tract infection type: acute cystitis Hematuria presence: without hematuria Qualified Code(s): N30.00 - Acute cystitis without hematuria (5) Hypokalemia Current Visit: Yes Status: Resolved Assessment and plan: Resolved. K+ 4.1, po supplementation has been stopped. (6) Closed left clavicular fracture Current Visit: Yes Status: Acute Assessment and plan: Patient presented to the emergency room with left clavicle fracture sustained in fall at home prior to arrival. She has been evaluated by orthopedics who planned for nonoperative treatment due to her stroke workup and UTI. Patient will need to follow in the office. At that time, clavicle ORIF with possible before meals stabilization as an outpatient as potential outcome. She is wearing a sling at this time and is recommended she follow up with sports medicine for continued monitoring and evaluation. Orthopedics is going to arrange for an appointment. Continue PT/OT. Pain control as needed. Qualifiers: Encounter type: initial encounter Clavicle location: lateral end Fracture alignment: displaced Qualified Code(s): S42.032A - Displaced fracture of lateral end of left clavicle, initial encounter for closed fracture (7) Parkinsonian features Current Visit: Yes Status: Acute Assessment and plan: Patient with cogwheel rigidity, new onset tremor. She has been evaluated by neurology, Dr. Rios does not recommend starting therapy at this time. Patient will follow-up in the office in 2 weeks consider treatment at that time. reports history of rigidity and tremors for last 8 months. (8) Wrist drop, right wrist Current Visit: Yes Status: Acute Assessment and plan: Sudden onset date prior to arrival. Patient was able to use her wrist and hand to manipulate her walker. patient will have ortho evaluation and bracing. Neurology recommends follow- up and EMG as an outpatient. Plan as above. (9) Hypocalcemia Current Visit: Yes Status: Acute Assessment and plan: Pt has had decline in calcium since arrival. Critical at 5.9 today. She was given 1 gram Calcium Gluconate IV and level increased to 6.6. Will continue to supplement with po and recheck in the a.m. - Time Spent With Patient less than 15 minutes - Subjective Interval history: Pt was seen and assessed at bedside at 0930 a.m. Pt was drowsy, aroused easily to verbal stimuli. She was alert and oriented to first name only today, was unaware of her last name. She was unable to name the month of the year and believes that she was in [place]. Right hand seems to have improved some today and is not rigid and pt can grasp with fingers today. is at bedside. He has multiple questions, requested that he speak with family by phone. All questions were answered. She denies headache, blurred vision, neck pain, dizziness. She denies any chest pain or shortness of breath, no nausea, no vomiting, no diarrhea. - Constitutional Vitals: Temp Pulse Resp BP Pulse Ox 97.2 F L 77 16 128/72 99 12/15/17 10:38 12/15/17 10:38 12/15/17 10:38 12/15/17 10:38 12/15/17 10:38 General appearance: Present: cooperative, A&O X 1, pleasant, no acute distress. Absent: answers questions appropriately - Head Head exam: Present: atraumatic, normal inspection, normocephalic - Eye Eye exam: Present: normal appearance, conjuntiva pink, sclera anicteric - Neck Neck exam general surgery: Present: supple, trachea midline. Absent: lymphadenopathy, tenderness - Respiratory Respiratory exam: Present: CTAB. Absent: accessory muscle use, rales, rhonchi, wheezes - Cardiovascular Cardiovascular exam: Present: RRR, +S1, +S2. Absent: diastolic murmur, gallop, rubs, systolic murmur - GI/Abdominal GI/Abdominal exam: Present: normal bowel sounds, soft. Absent: distended, hepatomegaly, tenderness - Extremities Exam Extremities exam: Present: normal capillary refill, warm, radial pulses palpable and symmetrical. Absent: calf tenderness, cyanotic, full ROM, normal inspection, pedal edema, tenderness - Neurological Exam Neurological exam: Present: alert, oriented X3. Absent: strengths equal and symetr throughout, facial droop, speech deficit - Skin Skin exam: Present: dry, intact, normal color, warm. Absent: rash Internal Medicine: Result - Labs CBC & Chem 7: 12/15/17 08:05 12/15/17 08:05 Labs: Short CBC 12/15/17 Range/Units 08:05 WBC 6.1 (4.3-11.1) K/mcL Hgb 9.8 L (11.5-15.4) g/dL Hct 30.4 L (35.3-44.9) % Plt Count 187 (140-400) K/mcL Neutrophils # 4.2 (1.6-8.9) K/mcL BMP 12/15/17 12/15/17 08:05 12:36 Sodium 138 Potassium 4.1 Chloride 106 Carbon Dioxide 26 BUN 11 Creatinine 0.98 Glucose 111 H Calcium 5.9 L* 6.6 L - ABG Interpretation ABG results: PT/INR, D-dimer PT 10.8 Seconds (9.4-12.1) 12/11/17 20:00 - VTE Documentation of Mechanical Device: Intermittent pneumatic compression device Consult Discharge Plan - Plan Referrals: Adarsh Dior MD [Primary Care Provider] - 12/27/17 12:45 pm
--- NOTE | 2017-12-15 16:47 | Neurology Progress Note ---
Date of Encounter: 12/15/17 Time of Encounter: 16:45 Assessment and Plan (1) Altered awareness, transient Current Visit: No Status: Acute Likely secondary to encephalopathy on top of baseline dementia. Does have baseline Parkinson features and dementia may be part of it. Will evaluate as an outpatient to see if she can benefit from dopa therapy WIll sign off at this time Please call if any questions (2) Wrist drop, right wrist Current Visit: Yes Status: Acute Acute right wrist drop, negative MRI of brain for stroke, this likely peripheral due to compression to radial nerve. No specific treatment available except supportive device. EMG/NCV can be done as an outpatient basis. (3) Parkinsonian features Current Visit: Yes Status: Acute Patient does have mixed tremors, muscle rigidity and currently unable to assess gait. Does also have bradykinesis, May benefit from dopa therapy. Will evaluate as an outpatient. Subjective Principal diagnosis: right wrist drop Tremors Interval history: Patient seen and examined. She is sleeping at the time of the interview. Right wrist drop still noticeable. Reports slight improvement per medical staff. Wax and wane of mental status noted. No new neurological complaints Objective - Constitutional Vitals: Temp Pulse Resp BP Pulse Ox 98 F 80 16 145/72 98 12/15/17 15:25 12/15/17 15:25 12/15/17 15:25 12/15/17 15:25 12/15/17 15:25 - Neurological Exam Sensorimotor examination: Present: rigidity Motor examination - left side: 4/5: wrist flexion, wrist extension, quadriceps, plantarflexion Sensation intact: Present: intact Reflex and gait examination: other (Gait not assessed) Mental Status Examination: Present: awake, alert, oriented to person, oriented to place, drowsy, follows simple commands, inattentive, demented, impaired memory, impaired cognition, not reliable historian Cranial nerve examination: Present: PERRL, EOMI, mastication intact, no facial asymmetry is present, no dysarthria, tongue protrudes midline, no atrophy or facial fasiculations present Cerebellar examination: Present: dysarthria Tremor: right upper extremity - VTE Documentation of Mechanical Device: Intermittent pneumatic compression device Results - Laboratory Findings CBC and BMP: 12/15/17 08:05 12/15/17 08:05 Abnormal lab findings: Abnormal lab results RBC 3.25 M/mcL (3.82-4.97) L 12/15/17 08:05 Hgb 9.8 g/dL (11.5-15.4) L 12/15/17 08:05 Hct 30.4 % (35.3-44.9) L 12/15/17 08:05 Est GFR (Non-Af Amer) 54 (> 60) L 12/15/17 08:05 Glucose 111 mg/dL (70-105) H 12/15/17 08:05 Calcium 6.6 mg/dL (8.6-10.3) L 12/15/17 12:36 Magnesium 1.5 mg/dL (1.6-2.6) L 12/15/17 08:05 Creatine Kinase 841 Units/L (30-223) H 12/15/17 08:05 Cholesterol 200 mg/dL (< 200) H 12/12/17 03:07 LDL Cholesterol, Calc 112 mg/dL (0-99) H 12/12/17 03:07 HDL Cholesterol 77 mg/dL (40-59) H 12/12/17 03:07 Urine Clarity Cloudy (Clear) A 12/11/17 20:18 Urine Protein 30 mg/dL (Neg-Trace) H 12/11/17 20:18 Urine Glucose (UA) 500 mg/dL (Normal) H 12/11/17 20:18 Urine Blood Small (Negative) H 12/11/17 20:18 Urine Nitrite Positive (Negative) A 12/11/17 20:18 Ur Leukocyte Esterase Moderate (Negative) H 12/11/17 20:18 Urine Microscopic WBC 50-100 per hpf (0-3) H 12/11/17 20:18 Hyaline Casts Moderate per lpf (None-Few) H 12/11/17 20:18 Ur Culture Indicated? YES (NO) A 12/11/17 20:18 Consult Discharge Plan - Plan Referrals: Adarsh Dior MD [Primary Care Provider] - 12/27/17 12:45 pm
[2017-12-15] MEDS ORDERED: MOM Conc 10 ML UD.LIQ PO ONE (18:42)
[2017-12-16] MEDS: Piperacillin/Tazobactam 3.375 GM/200 ML BAG IVPB SCH ×2 (04:31→11:53)
[2017-12-16] MEDS: 0.9 % Sodium Chloride 1,000 ML IVC SCH (04:31)
[2017-12-16 04:53] LABS: Basophils # 0.1 K/mcL (0.0-0.2); Basophils % 0.9 %; Eosinophils # 0.1 K/mcL (0.0-0.6); Eosinophils % 2.5 %; Hematocrit 28.8 % (35.3-44.9); Hemoglobin 9.2 g/dL (11.5-15.4); Immature Granulocytes % 0.4 % (0-4); Lymphocytes # 1.2 K/mcL (0.6-4.6); Lymphocytes % 21.5 %; Mean Corpuscular HGB Conc 31.9 g/dL (31.6-35.5); Mean Corpuscular Hemoglobin 30.2 pg (28.0-33.3); Mean Corpuscular Volume 94.4 fL (83.0-100.0); Mean Platelet Volume 9.5 fL (9.4-12.4); Monocytes # 0.4 K/mcL (0.0-1.3); Monocytes % 6.8 %; Neutrophils # 3.9 K/mcL (1.6-8.9); Platelet Count 181 K/mcL (140-400); Red Blood Count 3.05 M/mcL (3.82-4.97); Red Cell Distribution Width 13.2 % (11.5-14.5); Segmented Neutrophils % 67.9 %
[2017-12-16 05:16] LABS: BUN/Creatinine Ratio 14 (6-26); Blood Urea Nitrogen 14 mg/dL (8-23); Calcium 6.4 mg/dL (8.6-10.3); Carbon Dioxide 28 mEq/L (23-29); Chloride 107 mEq/L (98-107); Glucose 93 mg/dL (70-105); Osmolality,Calculated 288 (280-300); Potassium 3.9 mEq/L (3.5-5.1); Sodium 139 mEq/L (136-145); eGFR For African Americans > 60 (> 60); eGFR For Non-African Americans 53 (> 60)
[2017-12-16] MEDS: *HR* Heparin 5,000 UNIT/ML VIAL SQ SCH (05:22)
[2017-12-16] MEDS ORDERED: Calcium Gluconate 1,000 MG in D5% in Water 100 ML IVPB ONE (07:45)
[2017-12-16 08:39] LABS: % Iron Saturation 23 % (15-50); Iron 60 mcg/dL (50-170); Transferrin 185 mg/dL (203-362)
[2017-12-16] MEDS: Aspirin Enteric Coated 81 MG Tablet PO SCH (09:43)
[2017-12-16 09:45] LABS: Folate 9.8 ng/mL (3.0-16.0)
--- NOTE | 2017-12-16 13:33 | Discharge Summary ---
Date of Encounter: 12/16/17 Time of Encounter: 08:10 - Discharge Diagnosis (1) Dementia Priority: Secondary Status: Acute Comments: Mentation and overall level of consciousness has improved, although her orientation seems to wax and wane throughout the day. I believe that patient has some baseline dementia and reports that over the last 6 months he has noticed a decline in her memory and overall level of functioning. Monitor for safety and falls Due to patient's decline in mobility and ability to perform ADLs, patient will be placed in [facility] for rehab. Qualifiers: Dementia type: vascular dementia Dementia behavioral disturbance: without behavioral disturbance Qualified Code(s): F01.50 - Vascular dementia without behavioral disturbance (2) Right sided weakness Priority: Primary Status: Acute Comments: Sudden onset before arrival. Fall with left clavicle fracture prior to arrival. Patient's right hand was contractured and she has been unable to use it or maneuver it, improved today, now just flaccid. She reports to me that she normally eats right handed. I was able to speak with family yesterday to report that all of the right hand contracture, muscle rigidity, and weakness, as well as confusion started 3-4 days ago. They report that they have before admission patient was able to walk throughout [employer] in to and from a car with her walker and tolerated well. Patient has strong and equal strength bilaterally to lower extremities. Facial movement is symmetrical. MRI of the brain was negative for acute disease, although there was moderate atrophy and microangiopathic changes. Head CT is negative for any acute intracranial abnormality, there is soft tissue hematoma seen overlying the right frontal sinus. Hematoma is also noted on physical exam. Chest x-ray is negative for any acute cardiopulmonary process. It is recommended the patient have physical therapy and occupational therapy at residential facility. Patient is accepted at [facility]. Potential discharge tomorrow if patient remains stable. She has been evaluated by neurology and diagnosed with parkinsonian features. Is not recommended at this time to start any treatment due to acute encephalopathy. Patient will need to follow-up in the office in 2 weeks. (3) UTI (urinary tract infection) Priority: Secondary Status: Acute Comments: Final urine culture positive for Pseudomonas aeruginosa. Antibiotic has been changed to Zosyn 3.37 g every 6 [address] [facility]. Qualifiers: Urinary tract infection type: acute cystitis Hematuria presence: without hematuria Qualified Code(s): N30.00 - Acute cystitis without hematuria (4) Hypokalemia Priority: Secondary Status: Resolved Comments: Resolved. (5) Closed left clavicular fracture Priority: Secondary Status: Acute Comments: Patient presented to the emergency room with left clavicle fracture sustained in fall at home prior to arrival. She has been evaluated by orthopedics who planned for nonoperative treatment due to her stroke workup and UTI. Patient will need to follow in the office. At that time, clavicle ORIF with possible before meals stabilization as an outpatient as potential outcome. She is wearing a sling at this time and is recommended she follow up with sports medicine for continued monitoring and evaluation. Orthopedics is going to arrange for an appointment. Continue PT/OT after discharge. Qualifiers: Encounter type: initial encounter Clavicle location: lateral end Fracture alignment: displaced Qualified Code(s): S42.032A - Displaced fracture of lateral end of left clavicle, initial encounter for closed fracture (6) Parkinsonian features Priority: Secondary Status: Acute Comments: Patient with cogwheel rigidity, new onset tremor. reports that she has been having symptoms for about a year and is anxious to start treatment. She has been evaluated by neurology, Dr. Rios does not recommend starting therapy at this time. Patient will follow-up in the office in 2 weeks consider treatment at that time. (7) Wrist drop, right wrist Priority: Secondary Status: Acute Comments: Sudden onset date prior to arrival. Patient was able to use her wrist and hand to use her walker prior to arrival. Neurology recommends follow-up and EMG as an outpatient. Ortho has evaluated patient and suggest radial nerve palsy. Patient should follow up with sports medicine after discharge. (8) Hypocalcemia Priority: Secondary Status: Acute Comments: IV Calcium Gluconate and Calcium carbonate given. It appears that pt takes 1, 800 mg calcium carbonate at home daily, it was not continued on admission. Will continue at [facility]. Pt will be able to discharge if repeat calcium > 7.5 Continue to monitor labs at [facility]CF (9) DVT prophylaxis Priority: Secondary Status: Acute Comments: Heparin SQ (10) Anemia Priority: Secondary Status: Acute Comments: Appears that patient has been anemic since September. Hemoglobin is steady at 9.2, no transfusion warranted at this time. Patient has no obvious signs of bleeding. Transferrin low, but iron and % saturation are WNL. Pt with mildly decreased B12 , will start oral supplementation. Monitor labs weekly at [facility]. Qualifiers: Anemia type: B12 deficiency Vitamin B12 deficiency anemia type: unspecified B12 deficiency Qualified Code(s): D51.9 - Vitamin B12 deficiency anemia, unspecified - Discharge Medications Prescriptions: Cyanocobalamin (Vitamin B-12) [B-12] 1,000 mcg PO DAILY #14 tablet.er Home Medications: Aspirin [Lo-Dose Aspirin EC] 81 mg PO DAILY 09/29/17 [History] Ergocalciferol (VITAMIN D2) [Vitamin D2] 50,000 unit PO QWEEK 09/29/17 [History] Levothyroxine [Synthroid] 100 mcg PO DAILY 09/29/17 [History] Calcium Carbonate [Calcium] 1,800 mg PO DAILY 12/12/17 [History] Cyanocobalamin (Vitamin B-12) [B-12] 1,000 mcg PO DAILY #14 tablet.er 12/16/17 [ Rx] Docusate [Colace] 100 mg PO DAILY capsule 12/16/17 [Rx] Simvastatin [Zocor] 20 mg PO HS tablet 12/16/17 [Rx] Allergies/Adverse Reactions: 3 Allergy/AdvReac Type Severity Reaction Status Date / Time No Known Allergies Allergy Verified 12/12/17 08:58 Procedures/tests Complete & Pending: Procedures Performed prior 72 hours Category Date Time Status EV carotid duplex imaging BI Routine Y 12/14/17 07:00 Completed Date of admission: 12/11/17 22:46 Primary care physician: Adarsh Dior MD Consults: 12/11/17 22:48 Consult to Speech Therapy [CONS] Routine Comment: Evaluate, develop and implement POC Reason for Consult: speech and swallowing valuation Call Completed: No 12/11/17 22:58 Consult to Occupational Therapy [CONS] Routine Comment: Evaluate, develop and implement POC Reason for Consult: ambulate and assess Consult to Physical Therapy [CONS] Routine Comment: Evaluate, develop and implement POC Reason for Consult: ambulate assess for placement need 12/13/17 19:15 Consult to Neurology [CONS] Routine Consulting Provider: Neurology [facility] Reason for Consult: increased tremors, increased rigidity, contractures. Call Completed: No 12/14/17 14:37 Consult to Orthopedic Surgery [CONS] Routine Consulting Provider: Orthopedics [facility] Reason for Consult: wrist drop Call Completed: Yes 12/15/17 13:41 Consult to Nutrition [CONS] Routine Comment: Consulting Provider: NUTRITION Reason for Dietary Consult: PO Supplementation Other:: Poor po intake Discharging clinician: Jenna Casillas Anticipated date of discharge: 12/16/17 - Patient Status Disposition: Transfer SNF Condition: Fair Functional capacity at discharge: wheelchair bound Overall status at discharge: patient is not back to baseline - Discharge Instructions Follow Up With: Adarsh Dior MD [Primary Care Provider] - 12/27/17 12:45 pm Additional Instructions: Pt will need frequent lab monitoring for hypocalcemia and anemia and to reassess urine after UTI. - Diet and Activity Activity: as per physical therapy Diet: advance to your usual diet Hospital course: Ms. Arrieta is a 82 year old female - Time Spent with Patient Total time spent providing and/or coordinating discharge services: - Constitutional Vitals: Temp Pulse Resp BP Pulse Ox 98.7 F 67 12 123/66 96 12/16/17 12:00 12/16/17 12:00 12/16/17 12:00 12/16/17 12:00 12/16/17 12:00 General appearance: Present: cooperative, A&O X 2, pleasant, no acute distress. Absent: answers questions appropriately - Head Head exam: Present: atraumatic, normocephalic - Eye Eye exam: Present: normal appearance, conjuntiva pink, sclera anicteric - Neck Neck exam general surgery: Present: supple, trachea midline. Absent: lymphadenopathy, tenderness - Respiratory Respiratory exam: Present: CTAB. Absent: accessory muscle use, rales, rhonchi, wheezes - Cardiovascular Cardiovascular exam: Present: RRR, +S1, +S2. Absent: diastolic murmur, gallop, rubs, systolic murmur - GI/Abdominal GI/Abdominal exam: Present: normal bowel sounds, soft. Absent: distended, hepatomegaly, tenderness - Extremities Exam Extremities exam: Present: warm, radial pulses palpable and symmetrical. Absent : calf tenderness, cyanotic, pedal edema - Neurological Exam Neurological exam: Present: alert, altered, no focal deficits. Absent: oriented X3, facial droop, speech deficit - Skin Skin exam: Present: dry, intact, normal color, warm. Absent: rash - VTE Documentation of Mechanical Device: Intermittent pneumatic compression device
[2017-12-16] MEDS ORDERED: Calcium Gluconate 2,000 MG in D5% in Water 100 ML IVPB ONE (13:43)
[2017-12-16 15:53] VITALS: BP 129/67
--- NOTE | 2017-12-16 18:12 | Physician Discharge Referral ---
<Jenna Casillas - Last Filed: 12/16/17 18:10> ExtendedCare Referral Info Transfer To: [facility] Provider in Charge after Transfer: PCP Institutional Level of Care: Skilled - Diagnosis (1) Dementia Priority: Primary Status: Acute (2) Right sided weakness Priority: Secondary Status: Acute (3) UTI (urinary tract infection) Priority: Secondary Status: Acute (4) Hypokalemia Priority: Secondary Status: Resolved (5) Closed left clavicular fracture Priority: Secondary Status: Acute (6) Parkinsonian features Priority: Secondary Status: Acute (7) Wrist drop, right wrist Priority: Secondary Status: Acute (8) Hypocalcemia Priority: Secondary Status: Acute (9) DVT prophylaxis Priority: Secondary Status: Acute (10) Anemia Priority: Secondary Status: Acute Expected Duration of Placement: 4 weeks Prognosis: Fair - Transfer Medications Prescriptions: Cyanocobalamin (Vitamin B-12) [B-12] 1,000 mcg PO DAILY #14 tablet.er Home Medications: Aspirin [Lo-Dose Aspirin EC] 81 mg PO DAILY 09/29/17 [History] Ergocalciferol (VITAMIN D2) [Vitamin D2] 50,000 unit PO QWEEK 09/29/17 [History] Levothyroxine [Synthroid] 100 mcg PO DAILY 09/29/17 [History] Calcium Carbonate [Calcium] 1,800 mg PO DAILY 12/12/17 [History] Cyanocobalamin (Vitamin B-12) [B-12] 1,000 mcg PO DAILY #14 tablet.er 12/16/17 [ Rx] Docusate [Colace] 100 mg PO DAILY capsule 12/16/17 [Rx] Simvastatin [Zocor] 20 mg PO HS tablet 12/16/17 [Rx] Allergies/Adverse Reactions: 3 Allergy/AdvReac Type Severity Reaction Status Date / Time No Known Allergies Allergy Verified 12/12/17 08:58 - Respiratory Orders Smoking Cessation: Smoking cessation has been advised. For more information, call the [place] Tobacco Quit Line at 0-787-DAXX-NOW. - Lab Orders Lab Orders: CBC, U/A, CXR yearly - Ancillary Orders May use pressure relief devices daily prn, May go on FREDO w/family/respon green party w /meds at nurse discretion PRN, May consult with Dentist, Lumber Loader, [employer] PRN - Advance Directives Code Status: Full Code - Mobility Orders Chair, Ambulate - Rehabiliation Orders Rehab Potential: Fair Rehab Orders: ROM Exercises, Evaluation for Physical Therapy, Evaluation for Occupational Therapy - Treatments May check for fecal impaction rectally daily PRN - Diet Orders Regular (Pt will need frequent monitoring of calcium, H and H over the next 2-3 weeks until levels normalize. Pt will need recheck of urine after abx completed. ) CERTIFICATION: I certify that the transfer of the above named patient to an Extended Care Facility is necessary for the continuing treatment of the diagnosis listed. The above information is true and accurate reflection of patient's current condition. Confidential - Redisclosure prohibited without a patient's written consent. <Jean Mancuso - Last Filed: 12/17/17 16:32> ExtendedCare Referral Info Provider in Charge after Transfer: PCP Institutional Level of Care: Skilled - Respiratory Orders Smoking Cessation: Smoking cessation has been advised. For more information, call the [place] Tobacco Quit Line at 4-054-IZSL-NOW. CERTIFICATION: I certify that the transfer of the above named patient to an Extended Care Facility is necessary for the continuing treatment of the diagnosis listed. The above information is true and accurate reflection of patient's current condition. Confidential - Redisclosure prohibited without a patient's written consent.
== END 2017-12-16 20:15 | DRG 689 ==
LOC: EMEROO 19:36 → 3BNU 19:36 → SUATTDRO 22:46 → 3BNU 23:29
PROVIDERS: ADMIT Internal Medicine Hematology & Oncology; ATTEND Internal Medicine